=== PATIENT | male | born 1940 | race Caucasian/White ===

== ENCOUNTER 2017-08-14 10:03 | Observation (INO) | payer BC, MEDICARE ==
[2017-08-14 10:27] LABS: #Eosinphils 0.1 thou/uL (0.0-0.7); #Lymphocytes 1.3 thou/uL (1.20-3.40); #Monocytes 0.5 thou/uL (0.11-0.59); #Neutrophils 3.7 thou/uL (1.40-6.50); %Basophils 0.1 % (0.0-1.0); %Eosinophils 1.9 % (0.0-10.0); %Monocytes 8.9 % (0.0-10.0); Hematocrit 42.5 % (42.0-52.0); Mean Platelet Volume 7.4 fL (7.4-10.4); Red Blood Cell (RBC) Count 4.17 mill/uL (4.70-6.10); White Blood Cell (WBC) Count 5.5 thou/uL (4.8-10.8)
[2017-08-14 10:45] LABS: ALT (SGPT) 24 U/L (8-55); AST (SGOT) 22 U/L (5-34); Alkaline Phosphatase 55 U/L (40-150); Anion Gap 8 mmol/L (10-20); BUN (Urea Nitrogen) 22 mg/dL (8.4-25.7); Bilirubin, Total 1.3 mg/dL (0.2-1.2); CK (CPK) 87 U/L (30-200); Calc. Creatinine Clearance 0 mL/min (70-130); Calcium 9.9 mg/dL (7.8-10.44); Carbon Dioxide 31 mmol/L (23-31); Chloride 103 mmol/L (98-107); Estimated GFR-MDRD Greater than 90; Globulin 3.2 g/dL (2.4-3.5); Protein, Total 7.3 g/dL (5.8-8.1)
[2017-08-14 10:50] LABS: Troponin I Less than 0.010 ng/mL (< 0.028)
[2017-08-14 10:54] LABS: Prothrombin Time 13.3 SEC (12.0-14.7)
--- NOTE | 2017-08-14 10:55 | RAD ---
AP PORTABLE VIEW CHEST: HISTORY: Mid sternal pain and weakness for 1 week. FINDINGS: AP view chest was obtained on 08/14/17. AP view chest demonstrates calcification and ectasia of the aorta. There is some fullness in the right hilar region concerning for possible right hilar mass or lymphade nopathy. I do recommend correlation with contrast-enhanced CT of the chest to rule out right hilar a bnormality. IMPRESSION: 1. Possible right hilar mass. 2. Calcification of the aorta. No other acute intrathoracic abnormality is seen. POS: [facility]
--- NOTE | 2017-08-14 11:53 | CT ---
CONTRAST ENHANCED CTA CHEST: HISTORY: Mid sternal pain. Weakness for one week. TECHNIQUE: A contrast enhanced CTA of the chest is performed, and 2D and 3D reconstructed images are performed o n an independent 3D work station. FINDINGS: CTA chest demonstrates coronary artery calcifications. Aortic valvular calcification is also seen. There is a partially calcified granuloma in the superior segment of the left lower lobe. Areas of sc ar or atelectasis are also seen in the posterolateral aspect of the left lower lobe. No evidence of mediastinal or hilar lymphadenopathy is seen. No definite evidence of filling defect seen in the pulmonary arteries, to suggest pulmonary emboli. A tiny pericardial effusion is seen. No evidence of pleural effusion is seen. IMPRESSION: No evidence of pulmonary emboli. POS: [facility]
[2017-08-14] MEDS ORDERED: Enoxaparin Sodium 100 MG/ML SYRINGE ONE (12:38)
[2017-08-14] MEDS ORDERED: ISOVUE-370 76%-LOCM 1 ML ONE (13:55)
[2017-08-14 13:57] LABS: Troponin I Less than 0.010 ng/mL (< 0.028)
--- NOTE | 2017-08-14 14:40 | HP ---
PRIMARY CARE PHYSICIAN: Jennifer Gibson in [place]. The patient also sees a Dr. Hoang [facility] the [place]. CHIEF COMPLAINT: Chest pain. HISTORY OF PRESENT ILLNESS: Mr. Interiano is a pleasant 76-year-old gentleman who has a history of hypertension. He was in his usual state of health until the morning of admission. The patient says that he noticed that whenever he was not doing anything around the house or outside, he felt dizzy. He says that this has been going on for the last 2 days, but got progressively worse. He also says carrie fitzgerald was having these pains in his chest in the center of his chest and he describes it as feeling like he had indigestion and felt bloated. These sensations did not radiate into his arm or into his neck. He did feel somewhat short of breath and he felt like if he could induce himself to vomit, he would feel better, but he could not. He says that these symptoms were worse actually when he was coughing or taking a deep breath and would get better. As a result he came to the emergency room for evaluat ion. In the ER, he had a CT angiogram of the chest which was negative for PE; however, it showed jorge e calcifications in his coronary arteries and he is being brought into the hospital for further evalu ation. It is also noted in reviewing his records, he had an echocardiogram done about 2 years ago. At that time, he had severe aortic stenosis with a calculated valve area of approximately 1.35 cm2. He says that he is being managed by Dr. Castro and his last echo was about a year ago. The patient denies any leg swelling or edema or leg pain. He also denies any palpitations, but he does admit to this lightheaded feeling and dizziness whenever he does anything. REVIEW OF SYSTEMS: CONSTITUTIONAL: There have been no fevers, chills, night sweats, no weight loss. HEENT: No headaches, but he has had dizziness, no visual changes, no sore throat, rhinorrhea, neck p ain, no adenopathy. PULMONARY: There has been no hemoptysis, no cough, no wheezing. CARDIOVASCULAR: As the history of present illness. GASTROINTESTINAL: He has had the constant bloating feeling, but no nausea, no vomiting, no change in bowels. GENITOURINARY: No urinary frequency, hematuria, no hesitancy. NEUROLOGIC: No focal weakness, numbness or seizures. PSYCHIATRIC: No symptoms of anxiety or depression. SKIN AND INTEGUMENT: No skin changes. No rash. PAST MEDICAL HISTORY: Significant for hypertension as well as osteoarthritis. PAST SURGICAL HISTORY: He has had a varicose vein repair, hernia repair. It is listed as an appende ctomy in his old records, but he denies this and says he still has his appendix. He says he has had a tonsillectomy, nasal fracture, but no surgery to repair this. He has also had bilateral shoulder s urgery. ALLERGIES: No known drug allergies. SOCIAL HISTORY: He is . He is a non-smoker, he occasionally drinks. He has 9 siblings, all of which are doing well except for one sister who of cancer. FAMILY HISTORY: Significant for diabetes in his mother and cancer in his sister. CURRENT MEDICATIONS: Hydrochlorothiazide. He says he just takes 1/2 tablet a day, Azulfazin 10 mg a nd aspirin 81 mg a day. PHYSICAL EXAMINATION: GENERAL: He is alert and oriented. He appears to be in no acute distress. Currently, he is chest p ain free. VITAL SIGNS: His blood pressure was 137/87, heart rate 71, respiratory rate 15, temperature is 97.1. HEENT: His pupils are equal, round, and reactive. Extraocular muscles are intact. Sclerae are anic teric. Throat; there is no erythema, no exudates. NECK: No adenopathy, no bruits. LUNGS: Clear. There is no wheezing, no rales. CARDIOVASCULAR: He has a normal S1, S2. No S3 or S4. No clicks or rubs. He does have a slight gra de 2/6 systolic murmur which is radiating to the carotids; however, it was a soft murmur. ABDOMEN: Soft, it is nontender, nondistended. Positive for bowel sounds. There is no rebound, no g uarding. EXTREMITIES: He has got significant varicose veins, but there is no edema. No warmth and on his pul ses he has got palpable dorsalis pedis pulses bilaterally. NEUROLOGICAL: The exam is nonfocal. LABORATORY: His EKG was sinus rhythm, the rate was in the 70s and there were no ST wave changes. Hi s white blood cell count 5.5, hemoglobin 13.8, hematocrit 42.5, platelet count is 208. INR 1.0. Sod ium 138, potassium 4.4, chloride is 103, CO2 is 31, BUN of 22, creatinine 0.8 and glucose was 99. Tr oponin is less than 0.010. ASSESSMENT AND PLAN: 1. This is a 76-year-old gentleman that presents with atypical chest pain as well as some indigestio n symptoms. He has a known history of critical aortic stenosis which it looks like it may have been first detected about 2 years ago. He will be brought in to observation. We will continue to trend h is cardiac enzymes and given the possibility of critical aortic stenosis we will hold off on ordering a stress test at this time and consult his manager fleet, Dr. Castro, with guidance with regards to further workup and recommendations. We will, however, go ahead and order an echocardiogram. 2. Hypertension, this appears to be well controlled and we will continue hydrochlorothiazide and con tinue to monitor his electrolytes. 3. We will place the patient on deep venous thrombosis and gastrointestinal prophylaxis.
[2017-08-14 17:07] LABS: Troponin I Less than 0.010 ng/mL (< 0.028)
[2017-08-14] MEDS ORDERED: Ondansetron HCl/PF 4 MG/2 ML Vial IVP PRN (21:58)
[2017-08-14] MEDS ORDERED: Sodium Chloride 0.9% 1,000 ML IV SCH (21:58)
[2017-08-14] MEDS ORDERED: Ondansetron ODT 4 MG TAB SL PRN (21:58)
[2017-08-14] MEDS ORDERED: Acetaminophen 325 MG TAB PO PRN (22:17)
[2017-08-14] MEDS ORDERED: Carvedilol 3.125 MG TAB PO SCH (22:30)
[2017-08-14] MEDS ORDERED: Famotidine 20 MG TAB PO SCH (22:30)
[2017-08-14 23:49] VITALS: BMI 25.4
[2017-08-15 01:11] LABS: Troponin I Less than 0.010 ng/mL (< 0.028)
[2017-08-15 05:10] LABS: #Eosinphils 0.1 thou/uL (0.0-0.7); #Lymphocytes 1.2 thou/uL (1.20-3.40); #Monocytes 0.3 thou/uL (0.11-0.59); #Neutrophils 2.9 thou/uL (1.40-6.50); %Basophils 0.3 % (0.0-1.0); %Eosinophils 3.3 % (0.0-10.0); %Lymphocytes 26.1 % (21.0-51.0); %Monocytes 6.9 % (0.0-10.0); Hematocrit 41.5 % (42.0-52.0); Mean Platelet Volume 7.3 fL (7.4-10.4); Red Blood Cell (RBC) Count 4.09 mill/uL (4.70-6.10); White Blood Cell (WBC) Count 4.5 thou/uL (4.8-10.8)
[2017-08-15 05:37] LABS: Anion Gap 10 mmol/L (10-20); BUN (Urea Nitrogen) 17 mg/dL (8.4-25.7); Calc. Creatinine Clearance 103 mL/min (70-130); Calcium 8.8 mg/dL (7.8-10.44); Carbon Dioxide 28 mmol/L (23-31); Chloride 104 mmol/L (98-107); Cholesterol 195 mg/dl (< 200 Desired); Estimated GFR-MDRD Greater than 90; LDL Cholesterol, Calculated 113 mg/dL
[2017-08-15 05:42] LABS: Troponin I Less than 0.010 ng/mL (< 0.028)
[2017-08-15] MEDS ORDERED: Famotidine 20 MG TAB PO SCH (09:00)
[2017-08-15] MEDS ORDERED: Enoxaparin Sodium 40 MG/0.4 ML SYRINGE SC SCH (09:00)
[2017-08-15] MEDS ORDERED: Aspirin 325 MG TAB PO SCH (09:00)
[2017-08-15] MEDS ORDERED: Carvedilol 3.125 MG TAB PO SCH (09:00)
--- NOTE | 2017-08-15 11:16 | PDOC.PN ---
- Subjective Encounter Start Date: 08/15/17 Encounter Start Time: 11:14 Mr. Interiano was seen today in follow-up of feeling dizzy, and bloated. He says he has not had any dizziness this morning, but has felt bloated. He admits he has not been up much to tell about the dizziness. - Objective Resuscitation Status: Resuscitation Status FULL:Full Resuscitation MAR Reviewed: Yes Vital Signs & Weight: Vital Signs (12 hours) Temp Pulse Resp BP BP Pulse Ox 08/15/17 08:00 98.3 F 79 18 131/73 92 L 08/15/17 03:39 97.6 F 69 18 129/68 92 L 08/15/17 00:34 94 L 08/15/17 00:00 97.7 F 67 20 124/76 92 L Weight Admit Weight 182 lb 3.2 oz Weight 182 lb 3.2 oz I&O: 08/14/17 08/15/17 08/16/17 06:59 06:59 06:59 Intake Total 462 Output Total 550 Balance 462 -550 Result Diagrams: 08/15/17 04:42 08/15/17 04:42 Phys Exam - Physical Examination HEENT: PERRLA Respiratory: no wheezing, no rales, no rhonchi Cardiovascular: RRR, no significant murmur Gastrointestinal: soft, non-tender, positive bowel sounds Musculoskeletal: no edema Dx/Plan (1) Chest pain Code(s): R07.9 - CHEST PAIN, UNSPECIFIED Status: Acute (2) Hypertension Code(s): I10 - ESSENTIAL (PRIMARY) HYPERTENSION Status: Acute - Plan * Chest pain and dizziness- await Echo results to evaluate * Await Cardiology evaluation * HTN - blood pressure is stable.
[2017-08-15 16:34] VITALS: BP 120/74; TEMP 97.8
--- NOTE | 2017-08-16 06:03 | CON ---
DATE OF CONSULTATION: 08/15/2017 HISTORY OF PRESENT ILLNESS: The patient is a 76-year-old gentleman who presented for evaluation of dizziness and chest discomfort. The patient states approximately 3 weeks ago, he started having midsternal chest discomfort. This has been a persistent pain. He states that it is more severe when he lies on his left side. The discomfort has continued throughout his hospitalization. The patient also reported that he has been doing a lot of physical activity and at times felt dizzy. The patient denies having any chest discomfort with exertion. He denies having any PND or orthopnea. PAST MEDICAL HISTORY: Hypertension. PAST SURGICAL HISTORY: Varicose veins, and hernia surgery. SOCIAL HISTORY: Nonsmoker. FAMILY HISTORY: No strong family history of coronary artery disease. MEDICATIONS ON ADMISSION: Hydrochlorothiazide half a tablet day, Azulfidine 10 mg daily, baby aspirin tablet daily. REVIEW OF SYSTEMS Ten-point system otherwise unremarkable. No history of easy bruising or bleeding, bright red blood per rectum. PHYSICAL EXAMINATION: GENERAL: This is a thin, well-developed gentleman in no acute distress with a blood pressure of 120/74. NECK: Showed no jugular venous distention. LUNGS: Clear to auscultation. HEART: Regular rate and rhythm, normal S1, S2 with a 2/6 systolic murmur. ABDOMEN: Nondistended. EXTREMITIES: Showed no edema. SKIN: Warm and dry. NEUROLOGIC: Nonfocal. VASCULAR: Radial pulses are 2+. LABORATORY RESULTS: Revealed him to have a sodium 130, potassium 4.4, chloride 103, bicarbonate 31, BUN 22, creatinine 0.81, glucose is 99, troponin less than 0.01. White blood cell count 4.5, hemoglobin 13.0, hematocrit 41.5, and platelets 198. INR was 1.0. EKG revealed normal sinus rhythm, normal ECG. Echocardiogram revealed normal left ventricular ejection fraction 60-65%, moderate aortic stenosis with an estimated area of 1.34 cm2. IMPRESSION: 1. Atypical chest pain. 2. Mild to moderate aortic stenosis. 3. Hypertension. This gentleman presents with atypical chest pain that has been present for several weeks. His EKG is unremarkable. From a cardiac standpoint, he will be treated him with nonsteroidal medication. We will need followup stress testing. We will follow this patient with you through this hospitalization. KEILA
--- NOTE | 2017-08-16 12:36 | DIS ---
DATE OF ADMISSION: 08/14/2017 DATE OF DISCHARGE: 08/15/2017 PRIMARY CARE PHYSICIAN: Jennifer Gibson in [place]. The patient also sees Dr. Hoang at the [place]. DISCHARGE DISPOSITION: Home. PRIMARY DISCHARGE DIAGNOSES: 1. Chest pain, it is atypical. 2. Moderate aortic stenosis. 3. Hypertension. 4. Osteoarthritis. DISCHARGE MEDICATIONS: There will be no change in medications and include hydrochlorothiazide 12.5 m g daily and alfuzosin 10 mg daily. PROCEDURES DONE DURING THE ADMISSION: The patient had a CT angiogram of the chest showing no evidenc e of pulmonary embolism. The patient also had an echocardiogram showing an ejection fraction estimat ed at 60%-65%. There is moderate mitral regurgitation and moderate aortic stenosis and valve area wa s once again estimated at 1.34 cm2. CODE STATUS: FULL CODE. ALLERGIES: No known drug allergies. HOSPITAL COURSE: Mr. Interiano is a pleasant 76-year-old gentleman who presented to the emergency r oom complaining of chest pain and dizziness primarily with exertion. He was placed in observation an d ruled out. An echocardiogram was obtained. It did not show any significant change in the aortic v alve area from a previous echo done about 2 years prior. He was seen by Cardiology and it was felt t hat his other symptoms including the chest pain was likely noncardiac and possibly musculoskeletal in origin. The dizziness likely could be due to mild dehydration as the patient had been doing quite a bit of work outside [place] prior to admission. He was instructed to stay hydrated and to have an outpatient followup with his community service director in a month or so and then also with his primary care yadira campos in few weeks.
== END 2017-08-15 19:50 | disposition home or self-care (01) ==
LOC: ERS 10:03 → INTOOBSV 12:06 → ERHOLD 12:06 → 2NO 21:45
PROVIDERS: ADMIT Internal Medicine; ATTEND Internal Medicine
DX: R07.89 Other chest pain (principal); I35.0 Nonrheumatic aortic (valve) stenosis; I10 Essential (primary) hypertension; M19.90 Unspecified osteoarthritis, unspecified site; Z79.899 Other long term (current) drug therapy; Z98.890 Other specified postprocedural states
CPT/HCPCS: 36415; 71010; 71275; 80048; 80053; 80061; 82550; 82553; 83690; 83880; 84484; 85025; 85610; 85730; 93005; 93306; 94760; 96360; 96361; 96372; A4216; G0378; J1650

== ENCOUNTER 2018-04-23 12:19 | Outpatient (CLI) | payer BC, MEDICARE | END 2018-04-23 12:20 | disposition home or self-care (01) | LOC: ULT 12:19 | PROVIDERS: ATTEND Family Medicine | DX: R06.02 Shortness of breath (principal); I35.0 Nonrheumatic aortic (valve) stenosis; I08.3 Combined rheumatic disorders of mitral, aortic and tricuspid valves | CPT/HCPCS: 93306 ==

== ENCOUNTER 2018-06-01 08:09 | Outpatient (CLI) | payer BC, MEDICARE ==
[2018-06-01 09:44] LABS: #Eosinphils 0.2 thou/uL (0.0-0.7); #Lymphocytes 1.1 thou/uL (1.20-3.40); #Monocytes 0.4 thou/uL (0.11-0.59); #Neutrophils 3.5 thou/uL (1.40-6.50); %Basophils 0.3 % (0.0-1.0); %Eosinophils 3.2 % (0.0-10.0); %Lymphocytes 21.3 % (21.0-51.0); %Monocytes 8.4 % (0.0-10.0); %Neutrophils 66.9 % (42.0-75.0); Hemoglobin 13.6 g/dL (14.0-18.0); Mean Corpuscular HGB CONC 32.4 g/dL (32.0-36.0); Mean Corpuscular Hemoglobin 32.7 pg (27.0-31.0); Mean Platelet Volume 7.9 fL (7.4-10.4); Platelet Count 227 thou/uL (130-400); RBC Distribution Width 11.6 % (11.5-14.5); Red Blood Cell (RBC) Count 4.17 mill/uL (4.70-6.10); White Blood Cell (WBC) Count 5.2 thou/uL (4.8-10.8)
[2018-06-01 09:53] LABS: Prothrombin Time 13.3 SEC (12.0-14.7)
[2018-06-01 09:54] LABS: PTT 29.2 SEC (22.9-36.1)
[2018-06-01 10:12] LABS: ALT (SGPT) 12 U/L (8-55); AST (SGOT) 16 U/L (5-34); Albumin 4.1 g/dL (3.4-4.8); Alkaline Phosphatase 41 U/L (40-150); Anion Gap 12 mmol/L (10-20); BUN (Urea Nitrogen) 18 mg/dL (8.4-25.7); Bilirubin, Total 1.9 mg/dL (0.2-1.2); Calc. Creatinine Clearance 0 mL/min (70-130); Calcium 9.7 mg/dL (7.8-10.44); Carbon Dioxide 26 mmol/L (23-31); Cardiac Risk 2.8 (Less than 4.5); Chloride 106 mmol/L (98-107); Cholesterol 208 mg/dl (< 200 Desired); Estimated GFR-MDRD Greater than 90; Glucose 91 mg/dL (83-110); HDL Cholesterol 73 mg/dL (>60 Neg Risk); LDL Cholesterol, Calculated 126 mg/dL; Potassium 4.2 mmol/L (3.5-5.1); Protein, Total 7.1 g/dL (5.8-8.1); Sodium 140 mmol/L (136-145); Triglycerides 46 mg/dL (Less than 150)
== END 2018-06-01 08:10 | disposition home or self-care (01) ==
LOC: LABBT 08:09
PROVIDERS: ATTEND Internal Medicine Cardiovascular Disease
DX: Z01.812 Encounter for preprocedural laboratory examination (principal); I35.0 Nonrheumatic aortic (valve) stenosis
CPT/HCPCS: 80053; 80061; 85025; 85610; 85730

== ENCOUNTER 2018-06-04 05:54 | Day surgery (SDC) | payer BC, MEDICARE ==
[2018-06-01 08:31] VITALS: BMI 26.0
[2018-06-04] MEDS ORDERED: Lidocaine 1% (PF) 30 ML VIAL ONE (06:32)
[2018-06-04] MEDS ORDERED: Midazolam HCl 2 mg/2 ml Vial ONE (07:09)
[2018-06-04] MEDS ORDERED: Heparin 10,000 UNITS/1 ML VIAL ONE (07:09)
[2018-06-04] MEDS ORDERED: Fentanyl 100 MCG/2 ML VIAL ONE (07:09)
[2018-06-04] MEDS ORDERED: Protamine Sulfate 50 MG/5 ML VIAL ONE (07:39)
[2018-06-04] MEDS ORDERED: Iopamidol 370 76% 100 ML VIAL ONE (11:04)
[2018-06-04] MEDS ORDERED: Iopamidol 370 76% 50 ML VIAL FS ONE (11:04)
== END 2018-06-04 16:05 | disposition home or self-care (01) ==
LOC: CCL 05:54
PROVIDERS: ATTEND Internal Medicine Cardiovascular Disease
PROC: 4A023N8 Measurement of Cardiac Sampling and Pressure, Bilateral, Percutaneous Approach (ICD-10-PCS; principal; 2018-06-04)
PROC: B2111ZZ Fluoroscopy of Multiple Coronary Arteries using Low Osmolar Contrast (ICD-10-PCS; principal; 2018-06-04)
DX: I35.0 Nonrheumatic aortic (valve) stenosis (principal); I25.10 Atherosclerotic heart disease of native coronary artery without angina pectoris; I10 Essential (primary) hypertension; E78.00 Pure hypercholesterolemia, unspecified; Z79.82 Long term (current) use of aspirin; Z79.899 Other long term (current) drug therapy
CPT/HCPCS: 85347; 93460; 93561; 99152; 99153; C1769; J1644; J2001; J2250; J2720; J3010

== ENCOUNTER 2018-06-14 09:11 | Outpatient (CLI) | payer BC, MEDICARE ==
--- NOTE | 2018-06-14 12:34 | CT ---
CT THORAX NONCONTRAST: DATE: 06/14/2018. HISTORY: A 77-year-old male with I35.0, non-rheumatic aortic valve stenosis. COMPARISON: Contrast-enhanced CT pulmonary angiogram of 08/14/2017. FINDINGS: The previous CT showed an approximately 1.4 x 1.2 x 1.7 cm pulmonary nodule in the superior segment o f the left lower lobe. It contains a tiny calcification within it. This nodule currently measures a pproximately 1.2 x 1.1 x 1.1 cm. There are plate-like densities in the left lower lobe consistent wi th subsegmental atelectasis. These have improved since the previous CT. Milder such densities are p resent in the contralateral right lower lobe. No new consolidation, pulmonary edema, pleural effusio n, or pneumothorax. Trachea and major bronchi are patent and clear. Atherosclerotic calcification o f coronary arteries. No pericardial effusion. Calcifications at the aortic root, including at the a ortic valve. Tortuosity of thoracic aorta without aneurysm. No mediastinal lymphadenopathy. IMPRESSION: 1. Calcifications of aortic valve and aortic root. 2. Coronary arthrosclerotic disease. 3. Benign pulmonary nodule in the superior segment of the left lower lobe. 4. No acute findings. RICCI Cutler POS: [facility]
== END 2018-06-14 09:12 | disposition home or self-care (01) ==
LOC: SCSCT 09:11
PROVIDERS: ATTEND Thoracic Surgery (Cardiothoracic Vascular Surgery)
DX: I35.0 Nonrheumatic aortic (valve) stenosis (principal); I25.10 Atherosclerotic heart disease of native coronary artery without angina pectoris; R91.1 Solitary pulmonary nodule
CPT/HCPCS: 71250

== ENCOUNTER 2018-06-20 05:43 | Inpatient (IN) | payer BC, MEDICARE ==
[2018-06-20] MEDS ORDERED: Albumin 5% 500 ML ONE (06:05)
[2018-06-20] MEDS ORDERED: CEFAZOLIN/Water 2 GM/20 ML SYRINGE ONE (06:10)
[2018-06-20] MEDS ORDERED: Vancomycin HCl 1.5 GM in Sodium Chloride 0.9% 250 ML 300 ML IVPB SCH (06:15)
[2018-06-20] MEDS ORDERED: Fentanyl 100 MCG/2 ML VIAL ONE (06:24)
[2018-06-20] MEDS ORDERED: Midazolam HCl 2 mg/2 ml Vial ONE (06:24)
[2018-06-20] MEDS ORDERED: Midazolam HCl 5 mg/5 ml Vial ONE (06:24)
[2018-06-20] MEDS ORDERED: Vecuronium 10 MG VIAL ONE ×2 (06:25→15:11)
[2018-06-20] MEDS ORDERED: Dexmedetomidine 200 MCG/2 ML VIAL ONE (06:25)
[2018-06-20] MEDS ORDERED: Iothalamate Meglumine 60% 50 ML VIAL FS ONE (06:42)
[2018-06-20 06:44] LABS: #Eosinphils 0.2 thou/uL (0.0-0.7); #Monocytes 0.5 thou/uL (0.11-0.59); #Neutrophils 4.4 thou/uL (1.40-6.50); %Basophils 0.2 % (0.0-1.0); %Eosinophils 2.5 % (0.0-10.0); %Monocytes 8.7 % (0.0-10.0); %Neutrophils 71.7 % (42.0-75.0); Hemoglobin 13.3 g/dL (14.0-18.0); Mean Corpuscular HGB CONC 32.6 g/dL (32.0-36.0); Mean Corpuscular Hemoglobin 32.8 pg (27.0-31.0); Mean Platelet Volume 7.8 fL (7.4-10.4); Platelet Count 203 thou/uL (130-400); RBC Distribution Width 11.4 % (11.5-14.5); Red Blood Cell (RBC) Count 4.04 mill/uL (4.70-6.10); White Blood Cell (WBC) Count 6.1 thou/uL (4.8-10.8)
[2018-06-20 06:48] LABS: Prothrombin Time 13.7 SEC (12.0-14.7)
[2018-06-20 06:49] LABS: PTT 30.3 SEC (22.9-36.1)
[2018-06-20 07:00] LABS: Anion Gap 10 mmol/L (10-20); BUN (Urea Nitrogen) 19 mg/dL (8.4-25.7); Calc. Creatinine Clearance 96 mL/min (70-130); Calcium 9.1 mg/dL (7.8-10.44); Carbon Dioxide 25 mmol/L (23-31); Chloride 109 mmol/L (98-107); Estimated GFR-MDRD Greater than 90; Glucose 91 mg/dL (83-110); Potassium 4.2 mmol/L (3.5-5.1); Sodium 140 mmol/L (136-145)
[2018-06-20] MEDS ORDERED: Heparin 10,000 UNITS/1 ML VIAL 30,000 UNITS in Sodium Chloride 0.9% 1,000 ML FS SCH (07:00)
[2018-06-20] MEDS ORDERED: Promethazine HCl 25 MG/ML VIAL IM PRN (11:51)
[2018-06-20] MEDS ORDERED: Bisacodyl 10 MG SUPP PR PRN (11:51)
[2018-06-20] MEDS ORDERED: Norepinephrine 8 MG/0.9% NS 250 ML IVPB PRN (11:51)
[2018-06-20] MEDS ORDERED: Potassium Chloride 20 MEQ/100 ML PREMIX BAG IVPB PRN (11:51)
[2018-06-20] MEDS ORDERED: Acetaminophen 325 MG TAB PO PRN (11:51)
[2018-06-20] MEDS ORDERED: Hetastarch 6% 500 ML 500 ML IVPB PRN (11:51)
[2018-06-20] MEDS ORDERED: hydrALAZINE 20 MG/ML VIAL SLOW IVP PRN (11:51)
[2018-06-20] MEDS ORDERED: Bisacodyl 5 MG TAB PO PRN (11:51)
[2018-06-20] MEDS ORDERED: Nitroglycerin 50 MG/250 ML BOT 250 ML IVPB PRN (11:51)
[2018-06-20] MEDS ORDERED: Guaifenesin DM 100-10/5 ML UDCUP PO PRN (11:51)
[2018-06-20] MEDS ORDERED: Fentanyl 100 MCG/2 ML VIAL SLOW IVP PRN (11:51)
[2018-06-20] MEDS ORDERED: Mag-Al 1200 mg/1200 mg/30 ML UDCUP PO PRN (11:51)
[2018-06-20] MEDS ORDERED: Phenylephrine 10 MG/NS 250 ML 250 ML IVPB PRN (11:51)
[2018-06-20] MEDS ORDERED: Morphine 2 MG/ML SYRINGE SLOW IVP PRN (11:51)
--- NOTE | 2018-06-20 11:53 | OP ---
DATE OF PROCEDURE: 06/20/2018 PREOPERATIVE DIAGNOSES: Aortic stenosis. POSTOPERATIVE DIAGNOSES: Aortic stenosis. PROCEDURE: Aortic valve replacement - this was initially begun as a minimally invasive and converted to open aortic valve replacement with a #23 Intuity bioprosthetic valve. SURGEON: Dr. Noah Miller and Dr. Jarad Gutierrez. ANESTHESIA: General endotracheal, Dr. Nirmal Zheng. PUMP TIME: 95 minutes. CROSS-CLAMP TIME: 48 minutes. LOW CORE TEMP: 32-degree Celsius. SCOUT: Kwaku Seaman. DRAINS: 24-Kyrgyz chest tubes x2. DRIPS: None. TRANSFUSIONS: None. PROCEDURE IN DETAIL: After consent was obtained, the patient was brought to operating room and placed in supine position on the operating room table. Appropriate anesthetic monitor was placed and general endotracheal anesthesia induced. Chest, abdomen and thighs were prepped and draped in usual sterile fashion. A cutdown was performed on the left common femoral vein and artery. 4 -0 Prolene pursestring sutures were placed. Left anterior thoracotomy was made in the second interspace. The third rib was divided. Mammary artery and vein were divided. The pleural space was entered. Retractors were then placed exposing the pericardium. Pericardium was incised and the incision was carried up superiorly toward the aorta and inferiorly down toward the inferior vena cava. Pericardial stay sutures were placed. The patient was systemically heparinized. A 24-Kyrgyz drain was placed in the right pleural cavity for CO2 insufflation and CO2 insufflation was begun. A 20-Kyrgyz arterial and a 24- Kyrgyz venous cannula were then positioned, utilizing fluoroscopic guidance. The patient was placed on cardiopulmonary bypass. A left ventricular sump drain was placed to the right superior pulmonary vein. Multiple attempts at exposing the aorta to allow for crossclamping were performed. We never were able to gain what I felt to be adequate exposure due to the right heart being full. We attempted to reposition the venous cannula, but could never get it positioned well enough to completely decompress the right heart. I did not feel it was safe to continue and we elected to convert to open operation. The sternum was opened. Sternum was spread. Once the sternum was spread the aorta was then exposed and aortic cross-clamp was applied and antegrade sanguinous cardioplegic arrest obtained. One liter of antegrade cold cardioplegia was given. A transverse aortotomy was performed. The valve was then inspected. It was a 3 leaflet valve that was heavily calcified. Leaflets were debrided and annulus decalcified. Valve measured as #23, Intuity valve was brought in the operative field and washed. Four sutures were placed, 2 in the noncoronary cusp and one in each of the left and right coronary cusp naders. These sutures were passed through the sewing ring of the valve and the valve was seated and secured with Rumel tourniquets. The balloon was inflated for 10 seconds at 4-1/ 2 mmHg. Balloon was deflated and the deployment device removed. Sutures were secured with core knots. The valve was seated nicely with no exposed cuff. The aortotomy was closed in a running fashion with 4-0 Prolene suture. De- airing maneuvers were then performed. After adequate deairing, the cross clamp was removed with the patient in Trendelenburg position. The patient was warmed. A left trigger sump drain was removed and its pursestring sutures secured. The antegrade cardioplegic catheter was removed and its pursestring sutures secured. After resumption of sinus rhythm, good hemodynamics, and temperature greater than 36.5, bypass was discontinued. Decannulation was performed and pursestring sutures secured in the groin. Wound was irrigated, closed in layers. Protamine was administered. Hemostasis was ensured within the mediastinum. A second drain was placed within the mediastinum itself. Ventricular pacing wires had been placed and brought to the skin and secured to skin with silk suture. A significant amount of time was spent ensuring hemostasis along the sternum. Vancomycin paste was placed on the sternal edges. After adequate hemostasis had been obtained, sternum was closed with #7 wire. Sternum was treated with platelet-rich plasma and wires twisted. Wounds were irrigated, treated with platelet-poor plasma, and closed in multiple layers. Needle, sponge, and instrument counts were all reported correct at the end of the procedure, the patient was transferred to the Intensive Care Unit in stable condition. KEILA
[2018-06-20] MEDS ORDERED: Magnesium 2 GM/NS 0.9% 100 ML 2 GM in Premix Bag 1 BAG IVPB SCH (12:15)
[2018-06-20] MEDS ORDERED: Dextrose 50% Abboject 50 ML SYRINGE SLOW IVP PRN (12:17)
[2018-06-20] MEDS ORDERED: Dextrose 5% in Water 1,000 ML IV PRN (12:17)
--- NOTE | 2018-06-20 12:25 | RAD ---
PORTABLE CHEST: History: Post op open heart surgery. Comparison: 04-16-18 FINDINGS: Heart size is enlarged. There are no post op sternotomy changes seen. Midline and right sided chest t ubes are present. A left sided jugular line is present. The catheter tip is difficult to visualized b ut appears to be within the brachiocephalic vein. There are atelectatic changes in the lung bases. IMPRESSION: Post-operative changes. POS: [facility]
[2018-06-20 12:41] LABS: INR-International Normal Ratio 1.5; Prothrombin Time 17.8 SEC (12.0-14.7)
[2018-06-20 12:52] LABS: #Eosinphils 0.1 thou/uL (0.0-0.7); #Neutrophils 14.7 thou/uL (1.40-6.50); %Basophils 0.3 % (0.0-1.0); %Eosinophils 0.7 % (0.0-10.0); %Lymphocytes 5.8 % (21.0-51.0); %Monocytes 5.7 % (0.0-10.0); %Neutrophils 87.8 % (42.0-75.0); Hemoglobin 12.5 g/dL (14.0-18.0); Mean Corpuscular HGB CONC 32.5 g/dL (32.0-36.0); Mean Corpuscular Hemoglobin 32.7 pg (27.0-31.0); Mean Platelet Volume 8.1 fL (7.4-10.4); Platelet Count 133 thou/uL (130-400); RBC Distribution Width 11.5 % (11.5-14.5); Red Blood Cell (RBC) Count 3.83 mill/uL (4.70-6.10); White Blood Cell (WBC) Count 16.6 thou/uL (4.8-10.8)
[2018-06-20 12:58] LABS: Anion Gap 8 mmol/L (10-20); BUN (Urea Nitrogen) 16 mg/dL (8.4-25.7); Calc. Creatinine Clearance 116 mL/min (70-130); Calcium 7.7 mg/dL (7.8-10.44); Carbon Dioxide 22 mmol/L (23-31); Chloride 113 mmol/L (98-107); Estimated GFR-MDRD Greater than 90; Glucose 152 mg/dL (83-110); Potassium 4.2 mmol/L (3.5-5.1); Sodium 139 mmol/L (136-145)
[2018-06-20] MEDS: D5 1/2 NS w/20 mEq KCL 1,000 ML IV SCH (13:05)
[2018-06-20] MEDS: CEFAZOLIN/Water 2 GM/20 ML SYRINGE SLOW IVP SCH ×2 (14:31→22:04)
[2018-06-20] MEDS ORDERED: Heparin 5,000 UNITS/ML VIAL ONE (15:11)
[2018-06-20] MEDS ORDERED: Sodium Bicarb 50 MEQ/50 ML VIAL ONE (15:11)
[2018-06-20] MEDS ORDERED: Mannitol 12.5 GM/50 ML ONE (15:11)
[2018-06-20] MEDS ORDERED: Lidocaine 2% PF 100 mg/5 ml Syringe ONE (15:11)
[2018-06-20] MEDS ORDERED: Calcium Chloride 1 GM/10 ML Abboject SYRINGE ONE (15:11)
[2018-06-20] MEDS ORDERED: Ketorolac Tromethamine 30 MG/ML VIAL ONE (15:11)
[2018-06-20] MEDS ORDERED: Potassium Chloride 60 MEQ/30 ML VIAL ONE (15:11)
[2018-06-20] MEDS ORDERED: Nitroglycerin 50 MG/250 ML BOT ONE (15:11)
[2018-06-20] MEDS ORDERED: ePHEDrine/0.9% NaCl/PF SYRINGE 50 mg/10 ml ONE (15:11)
[2018-06-20] MEDS ORDERED: Thrombin 5000 UNITS/5 ML VIAL ONE (15:11)
[2018-06-20] MEDS ORDERED: Aminocaproic Acid 5 GM/20 ML VIAL ONE (15:11)
[2018-06-20] MEDS ORDERED: Protamine Sulfate 250 MG/25 ML VIAL ONE (15:11)
[2018-06-20] MEDS ORDERED: Heparin 30,000 units/30 ml VIAL ONE (15:11)
[2018-06-20] MEDS ORDERED: Magnesium 5 GM/10 ML VIAL ONE (15:11)
[2018-06-20] MEDS ORDERED: HEXTEND 6% LR 500ML 500 ML IVPB PRN (16:15)
[2018-06-20] MEDS: Ondansetron HCl/PF 4 MG/2 ML Vial IVP PRN (17:02)
[2018-06-20] MEDS: HYDROcodone/Acetaminophen 5/325 mg Tablet PO PRN (17:03)
[2018-06-20] MEDS: Insulin Regular 300 UNITS/3 ML VIAL SC PRN ×2 (17:20→20:53)
[2018-06-20 17:26] LABS: Hemoglobin 10.6 g/dL (14.0-18.0)
[2018-06-20 17:41] LABS: Potassium 4.2 mmol/L (3.5-5.1)
--- NOTE | 2018-06-20 18:32 | CON ---
DATE OF CONSULTATION: 06/20/2018 REASON FOR CONSULTATION: Recent aortic valve replacement. PRIMARY PROPERTY MASTER: Dallas Castro MD HISTORY OF PRESENT ILLNESS: Mr. Interiano is a pleasant 77-year-old gentleman who recently underwen t a minimally invasive AVR. He currently has no complaints. He is extubated. His blood pressure is in the 90s. He is receiving . PAST MEDICAL HISTORY: Aortic stenosis, status post AVR; hypertension; varicose vein; hernia surgery. SOCIAL HISTORY: No current tobacco or alcohol use. CURRENT MEDICATIONS: Hydrochlorothiazide, aspirin. REVIEW OF SYSTEMS: Ten-point review of systems is reviewed as above, otherwise negative. PHYSICAL EXAMINATION: GENERAL: Patient is a pleasant male who is in no acute distress. The patient appears his stated age . VITAL SIGNS: Blood pressure 108/49, pulse 70, temperature afebrile. NEUROLOGIC: The patient is alert and oriented times 3 with no focal neurologic deficits. HEENT: Sclerae without icterus. Mouth has moist mucous membranes with normal pallor. NECK: No JVD. Carotid upstroke brisk. No bruits bilaterally. LUNGS: Clear to auscultation with unlabored respirations. BACK: No scoliosis or kyphosis. CARDIAC: Regular rate and rhythm with normal S1 and S2. No S3 or S4 noted. No significant rubs, murmurs, thrills, or gallops noted throughout the precordium. PMI is not displaced. There is no parasternal heave. ABDOMEN: Soft, nontender, nondistended. No peritoneal signs present. No hepatosplenomegaly. No abnormal striae. EXTREMITIES: 2+ femoral and 2+ dorsalis pedis pulses. No cyanosis, clubbing, or edema. SKIN: No gross abnormalities. PERTINENT LABORATORY DATA: Hemoglobin 10.6, creatinine 0.64. IMPRESSION: Status post aortic valve replacement. RECOMMENDATIONS: Mr. Interiano is currently doing well. Avoid beta birdie therapy given a blood p ressure of 95 systolic. Chest tube is still in place. Add statin therapy. Further recommendations per Dr. Dallas Castro in a.m.
[2018-06-20] MEDS: Fentanyl 100 MCG/2 ML VIAL SLOW IVP PRN (20:47)
[2018-06-20] MEDS: Famotidine/PF 20 mg/2ml Vial SLOW IVP SCH (20:49)
[2018-06-20] MEDS ORDERED: Prevnar 13-Val Conj/PF 0.5 ML SYRINGE IM ONE (21:00)
[2018-06-20] MEDS: Vancomycin HCl 1 GM in Premix Bag 1 BAG IVPB SCH (23:53)
[2018-06-21] MEDS: Insulin Regular 300 UNITS/3 ML VIAL SC PRN ×2 (00:22→04:42)
[2018-06-21] MEDS: Fentanyl 100 MCG/2 ML VIAL SLOW IVP PRN ×2 (00:38→04:21)
[2018-06-21] MEDS: HYDROcodone/Acetaminophen 5/325 mg Tablet PO PRN ×4 (01:38→16:58)
[2018-06-21] MEDS: Ondansetron HCl/PF 4 MG/2 ML Vial IVP PRN ×2 (01:38→18:05)
[2018-06-21 04:55] LABS: #Lymphocytes 0.8 thou/uL (1.20-3.40); #Neutrophils 9.7 thou/uL (1.40-6.50); %Eosinophils 0.1 % (0.0-10.0); %Lymphocytes 7.2 % (21.0-51.0); %Monocytes 8.9 % (0.0-10.0); %Neutrophils 83.8 % (42.0-75.0); Hemoglobin 9.6 g/dL (14.0-18.0); Mean Corpuscular HGB CONC 32.2 g/dL (32.0-36.0); Mean Corpuscular Hemoglobin 32.9 pg (27.0-31.0); Mean Platelet Volume 8.5 fL (7.4-10.4); Platelet Count 147 thou/uL (130-400); RBC Distribution Width 11.6 % (11.5-14.5); White Blood Cell (WBC) Count 11.5 thou/uL (4.8-10.8)
[2018-06-21 05:17] LABS: Anion Gap 10 mmol/L (10-20); BUN (Urea Nitrogen) 25 mg/dL (8.4-25.7); Calc. Creatinine Clearance 82 mL/min (70-130); Calcium 7.3 mg/dL (7.8-10.44); Carbon Dioxide 23 mmol/L (23-31); Chloride 109 mmol/L (98-107); Estimated GFR-MDRD 79; Glucose 140 mg/dL (83-110); Potassium 4.5 mmol/L (3.5-5.1); Sodium 137 mmol/L (136-145)
[2018-06-21] MEDS: CEFAZOLIN/Water 2 GM/20 ML SYRINGE SLOW IVP SCH (06:14)
[2018-06-21] MEDS ORDERED: Ketorolac Tromethamine 30 MG/ML VIAL ONE (06:27)
[2018-06-21] MEDS ORDERED: Ketorolac Tromethamine 30 MG/ML VIAL IVP SCH (06:30)
--- NOTE | 2018-06-21 08:09 | RAD ---
PORTABLE CHEST: HISTORY: Postop open heart surgery. COMPARISON: Prior day's exam. FINDINGS: Right side chest tubes remain in place. The chest tube located near the right costophrenic angle eliecer ears to have been retracted slightly as compared to the prior exam. Persistent bibasilar lung change s are seen. Heart size is enlarged. IMPRESSION: Relatively stable examination. Slight change in position of the right lateral chest tube. POS: [facility]
[2018-06-21] MEDS: Aspirin 325 MG TAB PO SCH (08:13)
[2018-06-21] MEDS ORDERED: Magnesium 2 GM/NS 0.9% 100 ML 2 GM in Premix Bag 1 BAG IVPB SCH (09:00)
[2018-06-21] MEDS: Magnesium 2 GM/50 ML 2 GM in Premix Bag 1 BAG IVPB SCH (10:08)
[2018-06-21] MEDS ORDERED: Amiodarone HCl 150 MG, Admixture Fee 1 EACH in Dextrose 5% in Water 100 ML IVPB SCH (10:30)
[2018-06-21] MEDS: Famotidine/PF 20 mg/2ml Vial SLOW IVP SCH ×2 (10:44→21:49)
[2018-06-21] MEDS: Amiodarone HCl 450 MG, Admixture Fee 1 EACH in Dextrose 5% in Water 250 ML IVPB SCH (10:55)
[2018-06-21] MEDS: Vancomycin HCl 1 GM in Premix Bag 1 BAG IVPB SCH (10:58)
[2018-06-21] MEDS ORDERED: Albumin 25% 0 ML ONE (11:52)
[2018-06-21] MEDS: Ketorolac Tromethamine 30 MG/ML VIAL IVP SCH ×2 (12:18→18:05)
[2018-06-21] MEDS: D5 1/2 NS w/20 mEq KCL 1,000 ML IV SCH (14:07)
[2018-06-21] MEDS: Atorvastatin Calcium 40 MG TAB PO SCH (21:49)
[2018-06-22] MEDS: Ketorolac Tromethamine 30 MG/ML VIAL IVP SCH ×5 (00:22→17:45)
[2018-06-22] MEDS ORDERED: Furosemide 40 MG/4 ML VIAL ONE (06:37)
[2018-06-22] MEDS: Famotidine/PF 20 mg/2ml Vial SLOW IVP SCH (08:52)
[2018-06-22] MEDS: Aspirin 325 MG TAB PO SCH (08:52)
[2018-06-22] MEDS: Magnesium 2 GM/50 ML 2 GM in Premix Bag 1 BAG IVPB SCH (08:52)
[2018-06-22] MEDS: HYDROcodone/Acetaminophen 5/325 mg Tablet PO PRN ×2 (09:19→21:43)
--- NOTE | 2018-06-22 11:42 | RAD ---
FRONTAL VIEW CHEST: INDICATION: Status post open heart surgery. FINDINGS: Supportive lines and tubes are similar. There is a prominent degree of pleural-based as well as pare nchymal density of the mid to lower chest bilaterally. Cardiomediastinal silhouette and pulmonary va sculature remain enlarged with progressive vascular congestion. Otherwise, no significant interval c hange. IMPRESSION: 1. Progressive opacities indicating increasing volume of pleural fluid with adjacent atelectasis and/or pneumonia. 2. Progressive edema. POS: [facility]
[2018-06-22] MEDS: Amiodarone HCl 450 MG, Admixture Fee 1 EACH in Dextrose 5% in Water 250 ML IVPB SCH (12:25)
[2018-06-22 12:54] LABS: Anion Gap 10 mmol/L (10-20); BUN (Urea Nitrogen) 36 mg/dL (8.4-25.7); Calc. Creatinine Clearance 43 mL/min (70-130); Calcium 7.3 mg/dL (7.8-10.44); Carbon Dioxide 21 mmol/L (23-31); Chloride 98 mmol/L (98-107); Estimated GFR-MDRD 37; Glucose 129 mg/dL (83-110); Sodium 125 mmol/L (136-145)
[2018-06-22 13:19] VITALS: BMI 27.3
[2018-06-22] MEDS: D5 1/2 NS w/20 mEq KCL 1,000 ML IV SCH (13:28)
[2018-06-22 15:31] LABS: #Lymphocytes 0.6 thou/uL (1.20-3.40); #Monocytes 0.5 thou/uL (0.11-0.59); #Neutrophils 6.8 thou/uL (1.40-6.50); %Basophils 0.2 % (0.0-1.0); %Eosinophils 0.4 % (0.0-10.0); %Lymphocytes 7.8 % (21.0-51.0); %Monocytes 6.6 % (0.0-10.0); %Neutrophils 84.4 % (42.0-75.0); Hemoglobin 7.9 g/dL (14.0-18.0); Mean Corpuscular HGB CONC 32.4 g/dL (32.0-36.0); Mean Corpuscular Hemoglobin 32.8 pg (27.0-31.0); Mean Platelet Volume 8.6 fL (7.4-10.4); Platelet Count 105 thou/uL (130-400); RBC Distribution Width 11.3 % (11.5-14.5); White Blood Cell (WBC) Count 8.1 thou/uL (4.8-10.8)
[2018-06-22] MEDS: Famotidine 20 MG TAB PO SCH (21:42)
[2018-06-22] MEDS: Atorvastatin Calcium 40 MG TAB PO SCH (21:42)
[2018-06-22] MEDS: Amiodarone 200 MG TAB PO SCH (21:42)
[2018-06-23] MEDS: Ketorolac Tromethamine 30 MG/ML VIAL IVP SCH ×4 (00:30→18:22)
[2018-06-23 04:30] LABS: #Eosinphils 0.1 thou/uL (0.0-0.7); #Lymphocytes 0.3 thou/uL (1.20-3.40); #Monocytes 0.6 thou/uL (0.11-0.59); #Neutrophils 5.1 thou/uL (1.40-6.50); %Basophils 0.2 % (0.0-1.0); %Eosinophils 0.8 % (0.0-10.0); %Lymphocytes 5.6 % (21.0-51.0); %Monocytes 9.2 % (0.0-10.0); %Neutrophils 84.2 % (42.0-75.0); Hemoglobin 7.7 g/dL (14.0-18.0); Mean Platelet Volume 8.9 fL (7.4-10.4); Platelet Count 105 thou/uL (130-400); RBC Distribution Width 11.3 % (11.5-14.5); Red Blood Cell (RBC) Count 2.33 mill/uL (4.70-6.10)
[2018-06-23 04:46] LABS: Anion Gap 9 mmol/L (10-20); BUN (Urea Nitrogen) 34 mg/dL (8.4-25.7); Calc. Creatinine Clearance 63 mL/min (70-130); Calcium 7.5 mg/dL (7.8-10.44); Carbon Dioxide 22 mmol/L (23-31); Chloride 94 mmol/L (98-107); Estimated GFR-MDRD 57; Glucose 114 mg/dL (83-110); Sodium 121 mmol/L (136-145)
--- NOTE | 2018-06-23 05:50 | PDOC.CTH ---
Cardiology Progress Note - Subjective Only complaining of dizziness, CP with inspiration - Objective Vital Signs Pulse Resp Pulse Ox 06/23/18 00:55 69 28 H 98 06/22/18 20:00 98 06/22/18 19:04 69 24 H 98 Weight 195 lb 1.745 oz 06/21/18 06/22/18 06/23/18 06:59 06:59 06:59 Intake Total 3722 2202 4175 Output Total 3522 235 6519 Balance 2497 1637 1820 - Physical Examination General/Neuro: alert & oriented x3, NAD Neck: carotid US brisk, no JVD present Lungs: CTA, unlabored respirations Heart: PMI normal, RRR Abdomen: no HSM, NT/ND, soft Extremities: + edema B - Labs Result Diagrams: 06/23/18 03:39 06/23/18 03:39 - Assessment/Plan AVR anemia dizziness Minimally invasive converted to open procedure On statin, ASA Pt also on amiodarone Hold BB secondary to low HR Dizziness may be secondary to amiodarone; if continues decrease to QAM dosing
[2018-06-23] MEDS: Amiodarone 200 MG TAB PO SCH ×2 (09:40→20:33)
[2018-06-23] MEDS: Aspirin 325 MG TAB PO SCH (09:40)
[2018-06-23 15:04] LABS: Sodium 122 mmol/L (136-145)
[2018-06-23] MEDS ORDERED: Mineral Oil ENEMA PR PRN (20:15)
[2018-06-23] MEDS ORDERED: Nitroglycerin 0.4 MG TAB (25 Tab Bottle) SL PRN (20:15)
[2018-06-23] MEDS: Atorvastatin Calcium 40 MG TAB PO SCH (20:33)
[2018-06-23] MEDS: Famotidine 20 MG TAB PO SCH (20:33)
[2018-06-24 04:54] LABS: #Eosinphils 0.1 thou/uL (0.0-0.7); #Lymphocytes 0.5 thou/uL (1.20-3.40); #Monocytes 0.6 thou/uL (0.11-0.59); #Neutrophils 3.8 thou/uL (1.40-6.50); %Basophils 0.3 % (0.0-1.0); %Eosinophils 2.5 % (0.0-10.0); %Lymphocytes 9.9 % (21.0-51.0); %Neutrophils 75.4 % (42.0-75.0); Hemoglobin 7.6 g/dL (14.0-18.0); Mean Corpuscular HGB CONC 33.4 g/dL (32.0-36.0); Mean Corpuscular Hemoglobin 33.1 pg (27.0-31.0); Mean Corpuscular Volume 99.1 fL (78.0-98.0); Mean Platelet Volume 8.4 fL (7.4-10.4); Platelet Count 122 thou/uL (130-400); RBC Distribution Width 11.3 % (11.5-14.5); Red Blood Cell (RBC) Count 2.28 mill/uL (4.70-6.10); White Blood Cell (WBC) Count 5.1 thou/uL (4.8-10.8)
[2018-06-24 05:20] LABS: Anion Gap 10 mmol/L (10-20); BUN (Urea Nitrogen) 30 mg/dL (8.4-25.7); Calc. Creatinine Clearance 88 mL/min (70-130); Calcium 7.7 mg/dL (7.8-10.44); Carbon Dioxide 23 mmol/L (23-31); Chloride 97 mmol/L (98-107); Estimated GFR-MDRD 81; Glucose 93 mg/dL (83-110); Potassium 4.3 mmol/L (3.5-5.1); Sodium 126 mmol/L (136-145)
[2018-06-24] MEDS: Amiodarone 200 MG TAB PO SCH ×2 (08:02→20:38)
[2018-06-24] MEDS: Aspirin 325 MG TAB PO SCH (08:02)
--- NOTE | 2018-06-24 09:02 | PDOC.CTH ---
Cardiology Progress Note - Subjective No complaints today. doing well - Objective Vital Signs Temp Pulse Resp BP Pulse Ox 06/24/18 08:22 100 06/24/18 08:19 79 20 100 06/24/18 04:00 98.7 F 74 17 106/84 98 06/24/18 00:00 98.3 F 73 18 122/64 98 Weight 201 lb 6.4 oz 06/23/18 06/24/18 06/25/18 06:59 06:59 06:59 Intake Total 4488 974 Output Total 1695 2190 Balance 1953 -1216 - Physical Examination General/Neuro: alert & oriented x3, NAD Neck: carotid US brisk, no JVD present Lungs: CTA, unlabored respirations Heart: PMI normal, RRR Abdomen: NT/ND, soft Extremities: + femoral B - Labs Result Diagrams: 06/24/18 03:47 06/24/18 03:47 - Assessment/Plan AVR anemia dizziness Dizziness resolved On BB, statin IP and PT
[2018-06-24] MEDS: Famotidine 20 MG TAB PO SCH (20:37)
[2018-06-24] MEDS: Atorvastatin Calcium 40 MG TAB PO SCH (20:37)
[2018-06-25] MEDS: HYDROcodone/Acetaminophen 5/325 mg Tablet PO PRN ×2 (00:16→21:25)
[2018-06-25 04:46] LABS: #Eosinphils 0.1 thou/uL (0.0-0.7); #Lymphocytes 0.5 thou/uL (1.20-3.40); #Monocytes 0.7 thou/uL (0.11-0.59); #Neutrophils 3.8 thou/uL (1.40-6.50); %Eosinophils 2.9 % (0.0-10.0); %Lymphocytes 9.9 % (21.0-51.0); %Monocytes 12.9 % (0.0-10.0); %Neutrophils 74.3 % (42.0-75.0); Hemoglobin 7.4 g/dL (14.0-18.0); Mean Corpuscular HGB CONC 32.8 g/dL (32.0-36.0); Mean Corpuscular Hemoglobin 32.6 pg (27.0-31.0); Mean Corpuscular Volume 99.6 fL (78.0-98.0); Mean Platelet Volume 7.3 fL (7.4-10.4); Platelet Count 166 thou/uL (130-400); RBC Distribution Width 11.3 % (11.5-14.5); Red Blood Cell (RBC) Count 2.27 mill/uL (4.70-6.10); White Blood Cell (WBC) Count 5.2 thou/uL (4.8-10.8)
[2018-06-25 05:05] LABS: Anion Gap 10 mmol/L (10-20); BUN (Urea Nitrogen) 19 mg/dL (8.4-25.7); Calc. Creatinine Clearance 100 mL/min (70-130); Calcium 7.8 mg/dL (7.8-10.44); Carbon Dioxide 24 mmol/L (23-31); Chloride 105 mmol/L (98-107); Estimated GFR-MDRD Greater than 90; Glucose 104 mg/dL (83-110); Potassium 4.1 mmol/L (3.5-5.1); Sodium 135 mmol/L (136-145)
[2018-06-25] MEDS: Amiodarone 200 MG TAB PO SCH ×2 (09:27→21:26)
[2018-06-25] MEDS: Aspirin 325 MG TAB PO SCH (09:27)
--- NOTE | 2018-06-25 20:31 | PDOC.CTH ---
Cardiology Progress Note - Subjective The pt seen and examined. No overnight events. No cardiac complaints. He walked twice today without any cardiac complaints. - Objective Vital Signs Temp Pulse Pulse Pulse Resp BP BP 06/25/18 19:45 98.9 F 86 18 06/25/18 19:07 76 18 06/25/18 15:17 98.6 F 79 18 06/25/18 11:23 98.4 F 75 18 06/25/18 08:52 82 76 115/62 125/67 BP Pulse Ox Pulse Ox 06/25/18 19:45 139/65 89 L 06/25/18 19:07 92 L 06/25/18 15:17 133/63 91 L 06/25/18 11:23 117/72 95 06/25/18 08:52 93 L Weight 203 lb 1 oz 06/24/18 06/25/18 06/26/18 06:59 06:59 06:59 Intake Total 974 1020 Output Total 2190 2100 Balance -1216 -1080 - Physical Examination General/Neuro: alert & oriented x3 Neck: no JVD present Lungs: CTA (diminished at bases) Heart: RRR Abdomen: soft Extremities: other: (No edema) - Telemetry Telemetry Rhythm: SR - Labs Result Diagrams: 06/25/18 04:07 06/25/18 04:07 - Assessment/Plan 1. s/p AV Replacement with Bioprosthetic valve on 06/20/18 - 2. Afib - remains in SR; on Amiodarone 400mg BID since 06/22/18 @ 2100; on ASA 325mg qd. 3. 1V CAD - stable; not on BBlocker or JEYSON/ARB due to hypotensive and complains of Dizziness 4. Dizziness - stable 5. Hyperlipidemia - 6. Anemia - No changed; cont. to monitor 7. Diastolic dysfunction - stable MAR reviewed Review of Systems - Review of Systems Constitutional: reports: no symptoms reported EENTM: reports: no symptoms reported Respiratory: reports: no symptoms reported Cardiac (ROS): reports: no symptoms reported ABD/GI: reports: no symptoms reported : reports: no symptoms reported Musculoskeletal: reports: no symptoms reported
[2018-06-25] MEDS: Atorvastatin Calcium 40 MG TAB PO SCH (21:26)
[2018-06-25] MEDS: Famotidine 20 MG TAB PO SCH (21:26)
[2018-06-26] MEDS: Amiodarone 200 MG TAB PO SCH ×2 (09:02→21:33)
[2018-06-26] MEDS: Aspirin 325 MG TAB PO SCH (09:02)
[2018-06-26] MEDS: HYDROcodone/Acetaminophen 5/325 mg Tablet PO PRN ×2 (09:05→21:35)
--- NOTE | 2018-06-26 11:47 | PDOC.CTH ---
Cardiology Progress Note - Objective Vital Signs Temp Pulse Resp BP Pulse Ox 06/26/18 09:54 78 157/71 H 06/26/18 08:00 98.2 F 82 20 189/82 H 90 L 06/26/18 07:40 90 L 06/26/18 06:57 81 16 93 L 06/26/18 03:30 97.5 F L 76 18 140/71 95 06/26/18 00:48 73 18 96 06/25/18 23:59 97.9 F 79 18 163/71 H 96 Weight 199 lb 6.4 oz 06/25/18 06/26/18 06/27/18 06:59 06:59 06:59 Intake Total 1020 300 Output Total 2100 Balance -1080 300 - Physical Examination General/Neuro: alert & oriented x3 Neck: no JVD present Lungs: other: (right sided expiratory wheezing) Heart: RRR Abdomen: NT/ND, soft - Telemetry Telemetry Rhythm: NSR - Labs Result Diagrams: 06/25/18 04:07 06/25/18 04:07 - Assessment/Plan 1. s/p AV Replacement with Bioprosthetic valve on 06/20/18 - 2. Afib - remains in SR; on Amiodarone 400mg BID since 06/22/18 @ 2100; on ASA 325mg qd. 3. 1V CAD - stable; not on BBlocker or JEYSON/ARB due to hypotensive and complains of Dizziness 4. Dizziness - stable 5. Hyperlipidemia - 6. Anemia - No changed; cont. to monitor 7. Diastolic dysfunction - stable 8. HTN. MAR reviewed
[2018-06-26] MEDS ORDERED: Lisinopril 5 MG TAB PO SCH (12:11)
[2018-06-26] MEDS ORDERED: Hydrochlorothiazide 25 MG TAB PO SCH ×2 (12:11→12:45)
[2018-06-26] MEDS ORDERED: hydrALAZINE 20 MG/ML VIAL SLOW IVP PRN (12:12)
[2018-06-26] MEDS ORDERED: Amiodarone 200 MG TAB PO SCH ×2 (12:13→12:45)
[2018-06-26] MEDS: Amlodipine 5 MG TAB PO SCH (12:16)
[2018-06-26] MEDS: Atorvastatin Calcium 40 MG TAB PO SCH (21:33)
[2018-06-26] MEDS: Famotidine 20 MG TAB PO SCH (21:35)
--- NOTE | 2018-06-27 02:58 | DIS ---
DATE OF ADMISSION: 06/20/2018 DATE OF DISCHARGE: 06/26/2018 DIAGNOSIS: Aortic stenosis. PROCEDURES: Aortic valve replacement with a number 23 Intuity bioprosthetic valve. DESCRIPTION OF HOSPITAL STAY: Mr. Interiano was admitted for aortic valve replacement. He underwen t the procedure on 06/20/2018. Postoperatively, he has done well. He had 1 bout of atrial fibrillat ion, which has been controlled atrial fibrillation with amiodarone. At the time of discharge, he is ambulatory, tolerating a regular diet, having good bowel and bladder function. Incisions are clean a nd dry without evidence of infection. DISCHARGE MEDICATIONS: Include, 1. Aspirin 325 mg daily. 2. Lipitor 40 mg at bedtime. 3. HCTZ 12.5 mg daily. 4. Flomax 0.4 mg daily. 5. Norvasc 5 mg daily. 6. Amiodarone 200 mg b.i.d. for 3 months. 7. Mylo 5/325, 1-2 q.6 hours p.r.n. pain. FOLLOWUP: With me in [address] Castro in a month.
[2018-06-27 04:20] VITALS: TEMP 98.4
[2018-06-27] MEDS: Amiodarone 200 MG TAB PO SCH (08:19)
[2018-06-27] MEDS: Aspirin 325 MG TAB PO SCH (08:19)
[2018-06-27] MEDS ORDERED: Hydrochlorothiazide 25 MG TAB PO SCH (09:00)
[2018-06-27] MEDS ORDERED: Lisinopril 10 MG TAB PO SCH (11:30)
[2018-06-27 11:57] VITALS: BP 143/68
[2018-06-27] MEDS: Amlodipine 5 MG TAB PO SCH (12:33)
--- NOTE | 2018-06-27 12:39 | PDOC.CTH ---
Cardiology Progress Note - Subjective The pt seen and examined. No overnight events. No cardiac complaints. - Objective Vital Signs Temp Pulse Resp BP BP Pulse Ox 06/27/18 12:33 143/68 H 06/27/18 11:56 143/68 H 06/27/18 10:32 154/74 H 06/27/18 07:14 81 15 95 06/27/18 06:32 80 182/88 H 06/27/18 04:00 98.4 F 80 20 165/77 H 95 Weight 195 lb 06/26/18 06/27/18 06/28/18 06:59 06:59 06:59 Intake Total 850 Balance 850 - Physical Examination General/Neuro: alert & oriented x3 Neck: no JVD present Lungs: CTA Heart: RRR Abdomen: soft Extremities: other: (No edema) - Telemetry Telemetry Rhythm: SR - Labs Result Diagrams: 06/25/18 04:07 06/25/18 04:07 - Assessment/Plan 1. S/p AV Replacement with Bioprosthetic valve on 06/20/18 - stable 2. Afib - remains in SR; on Amiodarone 400mg BID since 06/22/18 @ 2100; on ASA 325mg qd for high risk for falls. 3. 1V CAD - stable; On Lisinopril 10mg qd. 4. Dizziness - stable 5. Hyperlipidemia - on Statin 6. Anemia - No changed; cont. to monitor 7. Diastolic dysfunction - stable 8. HTN - Lisinopril 10mg qd was started from today. Norvasc 5mg 1 tab qd from today. The pt will f/u with Dr Falcon within 2wks. MAR reviewed * From Cardiac standpoint, the pt is stable to d/c home. Written prescription for Lisinopril 10mg qd will be given to the pt. The pt already has f/u with Dr Castro per . Review of Systems - Review of Systems Constitutional: reports: no symptoms reported EENTM: reports: no symptoms reported Respiratory: reports: no symptoms reported Cardiac (ROS): reports: no symptoms reported ABD/GI: reports: no symptoms reported : reports: no symptoms reported Musculoskeletal: reports: no symptoms reported
[2018-06-28] MEDS ORDERED: Lisinopril 10 MG TAB PO SCH (09:00)
--- NOTE | 2018-06-28 13:57 | PQF ---
[employer] Supervising Deputy Crystal Reports [employer] CaliVANESAZOHOUSTONLISANDRO BRII LEGGETT, JUSTINE Menjivar MD [id number] CLINICAL DOCUMENTATION CLARIFICATION FORM: POST DISCHARGE Please exercise your independent, professional judgment in responding to the clarification form. Clinical indicators are provided on the bottom of this form for your review Please check appropriate box(s): [ ] Acute blood loss anemia [ ] Post-op anemia related to acute blood loss [ ] Precipitous drop in hematocrit without anemia [ ] Anemia, not otherwise specified [ ] Other diagnosis [ x ] Unable to determine In addition, please specify: Present on Admission (POA): [ ] Yes [ ] No [ ] Unable to determine CLINICAL INDICATORS - SIGNS / SYMPTOMS / LABS Anemia diagnosis noted on 06/[address] Martinez 06/20/18 06/21/18 06/22/18 06/23/18 Hgb 10.6 L 9.6 L 7.9 L 7.7 L Hct 33.4 L 29.7 L 24.3 L 23.3 L RISK FACTORS Surgery TREATMENTS: 06/25 cardiology progress note, "Anemia -no changed; cont. to monitor" (This form is maintained as a part of the permanent medical record) 2014 [employer], [employer] ([employer] All Rights Reserved Ayah [email or web address] [phone] MTDD
== END 2018-06-27 12:58 | disposition home or self-care (01) | DRG 221 ==
LOC: SURG A 05:43 → CCU 11:06 → IMCU/EMU 06-23 20:00 → 2SE 06-24 23:52
PROVIDERS: ADMIT Thoracic Surgery (Cardiothoracic Vascular Surgery); ATTEND Thoracic Surgery (Cardiothoracic Vascular Surgery)
PROC: X2RF032 Replacement of Aortic Valve using Zooplastic Tissue, Rapid Deployment Technique, Open Approach, New Technology Group 2 (ICD-10-PCS; principal; 2018-06-20)
PROC: 5A1221Z Performance of Cardiac Output, Continuous (ICD-10-PCS; 2018-06-20)
DX: I35.0 Nonrheumatic aortic (valve) stenosis (principal); I25.10 Atherosclerotic heart disease of native coronary artery without angina pectoris; I10 Essential (primary) hypertension; N99.0 Postprocedural (acute) (chronic) kidney failure; I48.91 Unspecified atrial fibrillation; D64.9 Anemia, unspecified; R42 Dizziness and giddiness; E78.2 Mixed hyperlipidemia; Z53.39 Other specified procedure converted to open procedure; Z79.82 Long term (current) use of aspirin; Z86.69 Personal history of other diseases of the nervous system and sense organs
CPT/HCPCS: 36415; 36416; 36430; 71045; 76000; 80048; 85025; 85610; 85730; 86850; 86900; 86901; 90471; 90662; 93005; 93010; 93798; 94150; 94640; G0008; J0282; J0360; J1642; J1644; J1815; J1885; J1940; J2001; J2150; J2250; J2270; J2405; J2720; J3010; J3370; J3475; J3480; J7050; J7070; J7620; P9045; P9047; Q9961; S0017; S0028

== ENCOUNTER 2019-06-13 22:23 | Inpatient (IN) | payer BC, MEDICARE ==
[~2019-06-13 22:23] MED LIST: ISOVUE-370 76%-LOCM 1 ML ONE
[2019-06-13 23:09] LABS: Hemoglobin 12.4 g/dL (14.0-18.0); Mean Corpuscular HGB CONC 33.4 g/dL (32.0-36.0); Mean Corpuscular Hemoglobin 33.9 pg (27.0-31.0); Mean Platelet Volume 7.9 fL (7.4-10.4); Platelet Count 173 thou/uL (130-400); RBC Distribution Width 12.6 % (11.5-14.5); Red Blood Cell (RBC) Count 3.67 mill/uL (4.70-6.10); White Blood Cell (WBC) Count 8.6 thou/uL (4.8-10.8)
[2019-06-13 23:21] LABS: Hypochromia SLIGHT = 6-15 cells (100X) (0-5/hpf); Lymphocytes 6 % (21-51); MDiff Complete? YES; Macrocytosis SLIGHT = 6-15 cells (100X) (0-5/hpf); Monocytes 8 % (0-10); Neutrophil 86 % (42-75); Platelet Morphology Comment Appears Adequate
[2019-06-13 23:25] LABS: INR-International Normal Ratio 1.4; Prothrombin Time 16.8 SEC (12.0-14.7)
[2019-06-13 23:27] LABS: ALT (SGPT) 564 U/L (8-55); AST (SGOT) 336 U/L (5-34); Albumin 3.6 g/dL (3.4-4.8); Alkaline Phosphatase 341 U/L (40-110); Anion Gap 11 mmol/L (10-20); BUN (Urea Nitrogen) 23 mg/dL (8.4-25.7); Bilirubin, Total 4.7 mg/dL (0.2-1.2); Calc. Creatinine Clearance 0 mL/min (70-130); Calcium 8.5 mg/dL (7.8-10.44); Carbon Dioxide 24 mmol/L (23-31); Chloride 98 mmol/L (98-107); Estimated GFR-MDRD 49; Globulin 2.7 g/dL (2.4-3.5); Glucose 128 mg/dL (83-110); Lipase 16 U/L (8-78); Potassium 3.7 mmol/L (3.5-5.1); Protein, Total 6.3 g/dL (5.8-8.1); Sodium 129 mmol/L (136-145)
--- NOTE | 2019-06-13 23:44 | CT ---
CT ABDOMEN WITH CONTRAST CT PELVIS WITH CONTRAST: DATE: 06/13/2019 HISTORY: 78-year-old male with abdominal distention and abdominal pain. COMPARISON: None available TECHNIQUE: IV injection of iodinated contrast media: administered. Oral contrast media:Not administered FINDINGS: Gallbladder is distended. There is mild mural thickening and mildly increased mural enhancement. Mini mal pericholecystic fluid. There are several focal tiny calcified gallstones in the proximal body and slightly larger ones in the neck, of the gallbladder. There are several tiny gallstones in the cy stic duct and common bile duct. The common hepatic duct is dilated to approximately 14 mm. The common bile duct is mildly dilated to approximately 7 mm. The pancreatic duct is proximally dilated t o approximately 7 mm. The entire pancreatic duct is dilated. No signs of acute pancreatitis. Mild diffuse intrahepatic biliary ductal dilation. No focal hepatic abscess, cyst, or solid lesion. 3.5 cm exophytic cyst protruding from posterior surface of right renal upper pole. No hydronephrosis bilaterally. No pyelonephritis. Normal adrenals and spleen. No abdominal aortic aneurysm. Mild diffuse mural thickening of nondistended urinary bladder, nonspecific. Medialized, right upper quadra nt position of cecum. Appendix difficult to identify. No small bowel dilation. No signs of colonic diverticulitis. A few diverticula at splenic flexure and descending colon. No pneumoperitoneum. Broad flat region of consolidation at base of left lower lobe, nonspecific, perhaps atelectasis although pneumonia and aspiration cannot be completely excluded. IMPRESSION: 1) choledocholithiasis causing at least partial obstruction of the common bile duct and pancreatic du ct. 2.) Cholelithiasis. 3) suspicious for acute cholecystitis, probably due to the choledocholithiasis and cholelithiasis in the gallbladder neck.
[2019-06-13 23:47] LABS: Bilirubin 2+ (Negative); Blood, Urine 1+ (Negative); Clarity Turbid (Clear); Glucose, Urine (Dipstick) 30 mg/dL (Negative); Leukocyte Negative Leu/uL (Negative); Nitrite Negative (Negative); Protein, Urine (Dipstick) 50 mg/dL (Neg-Trace); RBC/HPF 0-3 HPF (0-3); Squamous Epithelial 0-3 HPF (0-3); Urobilinogen 3 mg/dL (Less than 2); WBC/HPF 21-50 HPF (0-3)
[2019-06-13] MEDS ORDERED: Piperacillin/Tazobactam 4.5 GM VIAL ONE (23:53)
[2019-06-14 00:04] LABS: Bacteria/HPF 1+ HPF (None Seen)
[2019-06-14 00:56] LABS: HBCM Index 0.04 S/CO (0-0.79); HBSAg Index 0.21 S/CO (0-0.99); Hep A IgM AB Non-Reactive (NonReactive); Hep B Surf Ag Non-Reactive S/CO (NonReactive); Hep C IgG Ab Non-Reactive (NonReactive); Hep C Index 0.08 S/CO (0-0.79); Hepatitis B Core IgM Abs Non-Reactive (NonReactive)
[2019-06-14] MEDS ORDERED: Ondansetron ODT 4 MG TAB SL PRN (01:53)
[2019-06-14] MEDS ORDERED: Ondansetron PF 4 MG/2 ML Vial IVP PRN ×2 (01:53→10:32)
[2019-06-14 01:59] VITALS: BMI 26.6
[2019-06-14] MEDS: Lactated Ringer's 1,000 ML IV SCH ×2 (02:15→10:13)
[2019-06-14] MEDS ORDERED: Piperacillin/Tazobactam 4.5 GM in Sodium Chloride 0.9% 100 ML IVPB SCH (06:00)
[2019-06-14] MEDS ORDERED: FLU VACC TS2019-20(65YR UP)/PF 180 MCG/0.5 ML SYRINGE IM ONE (09:00)
[2019-06-14 09:36] LABS: ALT (SGPT) 483 U/L (8-55); AST (SGOT) 277 U/L (5-34); Albumin 3.2 g/dL (3.4-4.8); Alkaline Phosphatase 294 U/L (40-110); Anion Gap 11 mmol/L (10-20); BUN (Urea Nitrogen) 18 mg/dL (8.4-25.7); Bilirubin, Total 3.8 mg/dL (0.2-1.2); Calc. Creatinine Clearance 68 mL/min (70-130); Calcium 8.4 mg/dL (7.8-10.44); Carbon Dioxide 27 mmol/L (23-31); Chloride 104 mmol/L (98-107); Estimated GFR-MDRD 65; Glucose 91 mg/dL (83-110); Lipase 6 U/L (8-78); Potassium 3.6 mmol/L (3.5-5.1); Protein, Total 5.8 g/dL (5.8-8.1); Sodium 138 mmol/L (136-145)
[2019-06-14 09:43] LABS: Band 1 % (5-11); Hemoglobin 12.6 g/dL (14.0-18.0); Lymphocytes 2 % (21-51); MDiff Complete? YES; Mean Corpuscular HGB CONC 32.8 g/dL (32.0-36.0); Mean Corpuscular Hemoglobin 33.6 pg (27.0-31.0); Mean Platelet Volume 7.6 fL (7.4-10.4); Monocytes 4 % (0-10); Neutrophil 93 % (42-75); Platelet Count 175 thou/uL (130-400); Platelet Morphology Comment Appears Adequate; RBC Distribution Width 12.8 % (11.5-14.5); Red Blood Cell (RBC) Count 3.73 mill/uL (4.70-6.10); White Blood Cell (WBC) Count 5.6 thou/uL (4.8-10.8)
--- NOTE | 2019-06-14 10:16 | CON ---
DATE OF CONSULTATION: 06/14/2019 REASON FOR CONSULTATION: Choledocholithiasis. HISTORY OF PRESENT ILLNESS: Siva Interiano is a very pleasant 78-year-old man, who was admitted to the hospital overnight about 1 week ago, he started developing fatigue, loss of appetite, and nausea. He has had no vomiting but has had some hiccups, some chills. Over the past few days, he has also been noted to have new scleral icterus and also started developing some abdominal pain. This is fairly generalized, but last night was localizing more to the right upper quadrant. Upon presentation, he was found to have significant LFT elevation with total bilirubin up to 4.7 as well as elevated transaminases. He also has some degree of acute kidney injury with creatinine 1.41. Abdominal imaging with CT demonstrates gallbladder wall thickening and gallbladder dilation. There is cholelithiasis and also multiple tiny stones within the common bile duct and the cystic duct. The common hepatic duct is dilated to 14 mm and a common bile duct also dilated to 7 mm. The pancreatic duct is also dilated at 7 mm throughout its course. The patient was started on Zosyn as well as analgesia and he is currently feeling pretty well this morning. He has been made n.p.o. Surgery has been consulted as well. REVIEW OF SYSTEMS: Full review of systems including constitutional, head, eyes, ears, nose, throat, GI, , cardiovascular, respiratory, musculoskeletal, neurologic systems is negative except as noted in the HPI. PAST MEDICAL HISTORY: Prostatic hypertrophy, arthritis, hernia repair, varicose veins, tonsillectomy, bilateral shoulder surgery, and aortic valve replacement. SOCIAL HISTORY: One alcoholic beverage per day. No smoking. No drug use. FAMILY HISTORY: Noncontributory. ALLERGIES: NO KNOWN DRUG ALLERGIES. MEDICATIONS: Outpatient medications: 1. Aspirin 325 mg daily. 2. Amlodipine. 3. Flomax. 4. Multivitamin. 5. Zetia. 6. Atorvastatin. Inpatient medications: Zosyn IV. PHYSICAL EXAMINATION: VITAL SIGNS: Temperature 97.5, pulse 75, blood pressure 117/65, and oxygen saturation 93% on room air. GENERAL: A 78-year-old man, lying in bed comfortably, in no distress. SKIN: Mild jaundice. No rashes were palpable. EYES: Mild scleral icterus. Extraocular movements intact. ENT: Mucous membranes moist. No oral lesions. LYMPH: No submandibular or supraclavicular lymphadenopathy. THYROID: Nontender to palpation. HEART: Regular rate and rhythm. LUNGS: Clear to auscultation bilaterally. ABDOMEN: Bowel sounds are present. Soft. Some generalized tenderness to palpation mostly in the right upper quadrant, but no guarding or rebound tenderness. EXTREMITIES: No peripheral edema. VESSELS: Radial pulses 2+ bilaterally. NEURO: Cranial nerves II through XII intact bilaterally. No focal deficits. LABORATORY STUDIES: WBC 8.6, hemoglobin 12.4, and platelets 173. INR 1.4. Total bilirubin up to 4.7, alkaline phosphatase 341, AST 336, ALT 564, and albumin 3.6. Lipase is 16. Lactic acid 0.7. Ammonia 23. Acetaminophen level is negative. Viral hepatitis serologies are all negative. BUN 23, creatinine 1.41. IMAGING STUDIES: CT of the abdomen and pelvis demonstrates dilation of the gallbladder, common hepatic duct and common bile duct as well as the pancreatic duct. The common hepatic duct measures 14 mm. The common bile duct and pancreatic duct both measures 7 mm. There are multiple stones within the cystic duct as well as the common bile duct. ASSESSMENT AND PLAN: 1. Choledocholithiasis. 2. Biliary and pancreatic duct dilation. 3. Elevated LFTs, secondary to choledocholithiasis. I had a long discussion with the patient and his family regarding the imaging and laboratory findings. He has confirmed choledocholithiasis, based on imaging. Interestingly, the common hepatic duct is more significantly dilated than the common bile duct and there are stones in the cystic duct. 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 We will plan for ERCP later today. I understand surgical consultation is pending as well. We discussed the potential risks and benefits of ERCP. We will likely perform biliary sphincterotomy and balloon sweep of the common bile duct. Following this hospitalization, we would also consider sending the patient for endoscopic ultrasound referral, due to the degree of pancreatic ductal dilation. No mass was demonstrated on the CT scan, but this should be definitively ruled out. Job ID: [id number]
[2019-06-14] MEDS ORDERED: Calcium Carbonate 500 MG ChewTAB PO PRN (10:32)
[2019-06-14] MEDS ORDERED: Ondansetron ODT 4 MG TAB PO PRN (10:32)
[2019-06-14] MEDS ORDERED: Senokot S 8.6-50 MG TAB PO PRN (10:32)
--- NOTE | 2019-06-14 11:04 | HP ---
CHIEF COMPLAINT: Abnormal LFTs. HISTORY OF PRESENT ILLNESS: The patient is a 78-year-old male, who presented from his primary care physician's office due to abnormal LFTs. Over the past 1 week, he has been feeling generally weak and fatigued. He had some nausea along with right upper quadrant abdominal discomfort. He has also lost his appetite. He denies any vomiting. He felt feverish and had some chills. He, however, did not record his temperature. He was evaluated by his PCP and was found to have elevated bilirubin. He was sent to the emergency room for evaluation. The patient denies any use of [id number] medications. He drinks on a daily basis up to one drink a day. He denies recent travel. No constipation or diarrhea reported. PAST MEDICAL HISTORY: 1. Hypertension. 2. Degenerative joint disease. 3. History of aortic valve replacement with bioprosthetic valve in 2018. 4. Benign prostatic hypertrophy. PAST SURGICAL HISTORY: 1. Varicose veins. 2. Hernia repair. 3. Nasal surgery. 4. Tonsillectomy. 5. Bilateral shoulder surgery. 6. Bioprosthetic aortic valve replacement. CURRENT HOME MEDICATIONS: The patient is unable to recall all of his blood pressure medications. Family to provide accurate list of medications. SOCIAL HISTORY: As discussed above, no current use of smoking or drug use. He is full code and makes his own decision with the help of his family. FAMILY HISTORY: Positive for diabetes in his mother. Sister with malignancy. REVIEW OF SYSTEMS: All other review of systems was reviewed and was found negative. PHYSICAL EXAMINATION: VITAL SIGNS: In the emergency, room showed temperature 98.5, respirations 16, pulse 76, blood pressure 109/54, O2 saturation 98% on room air. GENERAL: A 78-year-old male, in mild distress due to abdominal discomfort. HEENT: Head, atraumatic and normocephalic. Sclerae are anicteric. Dry mucous membrane. No oral lesion. NECK: Supple. No JVD. No carotid bruit. LUNGS: Clear to auscultation bilaterally. No wheezing, rales, or rhonchi. HEART: S1 and S2 present. Healed midline scar from previous open-heart surgery. No heaves or pulsation. ABDOMEN: Soft. There is [id number] tenderness in the right upper quadrant. No rebound or guarding. No costovertebral angle tenderness. EXTREMITIES: No edema or calf tenderness. NEUROLOGIC: Grossly nonfocal. Moves all 4 extremities. PSYCHIATRIC: Alert, awake, and oriented x3. SKIN: Warm and dry. LYMPH NODES: No palpable lymph nodes in the neck. PERIPHERAL VASCULAR: Radial pulses palpable bilaterally. MUSCULOSKELETAL: No joint swelling or tenderness. LABORATORY FINDINGS: CBC showed WBC 8.6 with hemoglobin 12.4, hematocrit 37.2, platelets 173. Total bilirubin 4.7 with AST 336, ALT 564, alkaline phosphatase 341. Ammonia was 23. Lipase was 16. Creatinine 1.41. Urinalysis showed 21 to 50 wbc's with 1+ bacteria. Acute hepatitis profile was negative. CT scan of the abdomen and pelvis by my review showed gallbladder distention with some thickening. It also showed choledocholithiasis. IMPRESSION: 1. Nausea with abdominal discomfort. His workup is consistent with acute choledocholithiasis with suspected acute cholecystitis. 2. Acute kidney injury on chronic kidney disease, stage 2. 3. Hyponatremia, secondary to dehydration. 4. Chronic anemia, macrocytic chronic anemia. 5. Hypertension. 6. Hyperlipidemia. 7. Benign prostatic hypertrophy. 8. Degenerative joint disease. 9. History of bioprosthetic aortic valve replacement. PLAN: The patient will be monitored on the surgical floor. We will change IV fluid to D5 half NS. We will recheck LFTs today. Consult General Surgery and Gastroenterology Service. The patient will be kept n.p.o. We will avoid hepatotoxic agents. Recheck labs in a.m. Plan of care was discussed with the patient in detail. He stated understanding. Job ID: [id number]
[2019-06-14] MEDS ORDERED: Succinylcholine Chloride 20 MG/ML 10 ml SYRINGE FS ONE (11:06)
[2019-06-14] MEDS ORDERED: PROPOFOL 200 MG/20 ML VIAL ONE (11:06)
[2019-06-14] MEDS ORDERED: Glycopyrrolate 0.2 MG/ML 5 ML SYRINGE ONE (11:06)
[2019-06-14] MEDS ORDERED: Lidocaine 1% PF 5 ML VIAL ONE (11:06)
[2019-06-14] MEDS ORDERED: PHENYLEPHRINE-NS 100 MCG/ML 10 ML SYRINGE ONE (11:06)
[2019-06-14] MEDS ORDERED: ePHEDrine 50 MG/ML VIAL ONE (11:06)
[2019-06-14] MEDS: Dextrose 5 %-0.45 % NaCl 1,000 ML IV SCH (11:57)
[2019-06-14] MEDS: Piperacillin/Tazobactam 3.375 GM in Sodium Chloride 0.9% 100 ML IVPB SCH ×2 (11:58→18:34)
[2019-06-14] MEDS ORDERED: Indomethacin 50 MG SUPP ONE (12:35)
[2019-06-14] MEDS ORDERED: Iothalamate Meglumine 60% 50 ML VIAL FS ONE (12:35)
[2019-06-14] MEDS ORDERED: Midazolam HCl 2 mg/2 ml Vial ONE (13:03)
[2019-06-14] MEDS ORDERED: Fentanyl 100 MCG/2 ML VIAL ONE (13:03)
--- NOTE | 2019-06-14 14:24 | RAD ---
EXAM: XR ERCP PROVIDED CLINICAL HISTORY: Cholelithiasis with intra and extrahepatic biliary ductal dilatation. COMPARISON: CT abdomen on 06/13/2019 FINDINGS/IMPRESSION: Single provided intraoperative fluoroscopic image of the right upper quadrant is submitted for interp retation. The common duct is cannulated with guidewire in the common duct. There is mild dilatation of the common duct. There is mild prominence of the most proximal intrahepatic bile ducts. There is a slightly irregular filling defect within the common duct proximal to the expected location of the pancreatic duct. A filling defect related to calculus is a possibility. Given the irregular margins, this is not suggestive of a gas bubble. Images demonstrating free spill of contrast into the duodenum are not provided. Correlation with intraoperative findings is recommended.
--- NOTE | 2019-06-14 16:00 | OP ---
DATE OF PROCEDURE: 06/14/2019 LITHODUPLICATOR OPERATOR SURGEON: None. PROCEDURES PERFORMED: Endoscopic retrograde cholangiopancreatography with biliary sphincterotomy, biliary sludge extraction, and ampullary biopsies. INDICATION: A 78-year-old man with choledocholithiasis, biliary and pancreatic ductal dilation on imaging. MEDICATIONS: 1. See Anesthesia record. 2. Indomethacin 100 mg per rectum, as prophylaxis against post ERCP pancreatitis. FINDINGS: After discussion of the risks, benefits, and alternatives of the procedure, informed consent was obtained and witnessed. Pre-endoscopic cardiopulmonary examination was satisfactory. Time-out was performed before sedation was achieved. Sedation was achieved with Anesthesia assistance in the endoscopy unit. The patient was placed in a semiprone position on the fluoroscopy table. A Pentax adult side-viewing duodenoscope was advanced beyond the oropharynx and esophagus, beyond the pylorus and into the second portion of the duodenum. The ampulla was brought into view with the endoscope in the short position. The ampulla was quite prominent and edematous with some mucus covering it. It essentially appeared masslike; however, the ampullary opening was easily visible. There was some free flow of bile spontaneously seen coming from the ampulla. Using a triple lumen dome-tipped sphincterotome and a 0.035 guidewire, we selectively cannulated the common bile duct. The guidewire was passed up into the left intrahepatic ductal system. Cholangiogram was then performed. This demonstrated dilation of the common bile duct all the way up into the intrahepatic ducts. There were some diffuse subtle filling defects throughout the common bile duct. No discrete biliary stricture or large stones identified. The cystic duct did not fill. At this point, a generous biliary sphincterotomy was performed. The sphincterotome was then exchanged for a 12 to 15 mm extraction balloon. Multiple passes were made of the common bile duct with the balloon partially and fully inflated. In this fashion, we were able to extract a copious amount of biliary sludge. Following this, I irrigated the biliary tree with 50 mL of sterile water. At this point, biopsy forceps were passed down the endoscope and multiple biopsies were taken of the patient's prominent ampulla. The biopsy tissue was firm in consistency. Bleeding was minimal. At this point, the endoscope was completely withdrawn suctioning out excess air and fluid, and the procedure was complete. Postprocedure fluoroscopic images demonstrated no retroperitoneal or subdiaphragmatic free air. The patient tolerated the procedure well. There were no immediate postprocedure complications. IMPRESSION: 1. Prominent ampulla, masslike in appearance. Multiple biopsies obtained. 2. Common bile duct dilation. The cystic duct did not fill. 3. Copious common bile duct sludge, now status post successful biliary sphincterotomy and sludge extraction with balloon sweep and irrigation. RECOMMENDATIONS: 1. Surgical consultation for consideration of cholecystectomy. 2. Clear liquid diet tonight. 3. Trend LFTs. 4. Follow up ampullary biopsy results. 5. Monitor for potential complications including post ERCP pancreatitis. Job ID: [id number]
--- NOTE | 2019-06-14 16:31 | CON ---
DATE OF CONSULTATION: 06/14/2019 CHIEF COMPLAINT: Choledocholithiasis. HISTORY OF PRESENT ILLNESS: This is a 78-year-old male, who presents with a history of pain in his upper abdomen, seen in the emergency department. The pain is described as sharp, does not radiate in the right upper quadrant. It has improved since admission. The pain is associated with nausea, no vomiting. He was found to have significant elevation of his bilirubin and evidence of choledocholithiasis on his CAT scan. He underwent ERCP this afternoon by Dr. Fontanez and ampullary biopsy. I have been consulted for cholecystectomy. PAST MEDICAL HISTORY: Includes hypertension, DJD, aortic valve replacements in 2018, and BPH. SURGICAL HISTORY: Hernia, tonsillectomy, aortic valve, and varicose veins. SOCIAL HISTORY: No smoking, alcohol. No other drugs. REVIEW OF SYSTEMS: Ten-system review of systems is otherwise negative unless described above. ALLERGIES: NO KNOWN DRUG ALLERGIES. PHYSICAL EXAMINATION: VITAL SIGNS: His blood pressure is 130/75, pulse 81, respirations 18, he is afebrile. HEENT: Sclerae anicteric. Oropharynx is clear. NECK: No lymphadenopathy. CHEST: Clear. HEART: Regular rate. ABDOMEN: Soft. Tender right upper quadrant with no guarding or rebound. No abdominal or inguinal hernias. EXTREMITIES: No ischemia or edema to extremities. ASSESSMENT: Choledocholithiasis, history of cholelithiasis. PLAN: Laparoscopic cholecystectomy tomorrow. Risks, benefits, and alternatives were discussed. He gives consent. We will do this tomorrow. Job ID: [id number]
[2019-06-14] MEDS: Tamsulosin HCl 0.4 MG CAP PO SCH (22:00)
[2019-06-14] MEDS: Famotidine/PF 20 mg/2ml Vial SLOW IVP SCH (22:01)
[2019-06-14] MEDS ORDERED: diphenhydrAMINE 50 MG/ML VIAL IVP PRN (22:10)
[2019-06-15] MEDS: Piperacillin/Tazobactam 3.375 GM in Sodium Chloride 0.9% 100 ML IVPB SCH ×2 (00:32→05:34)
[2019-06-15] MEDS: Dextrose 5 %-0.45 % NaCl 1,000 ML IV SCH (00:33)
[2019-06-15 05:05] LABS: Band 7 % (5-11); Elliptocytes SLIGHT = 2-5 cells (100X) (0-1/hpf); Hemoglobin 11.4 g/dL (14.0-18.0); Hypochromia SLIGHT = 6-15 cells (100X) (0-5/hpf); Lymphocytes 10 % (21-51); MDiff Complete? YES; Macrocytosis SLIGHT = 6-15 cells (100X) (0-5/hpf); Mean Corpuscular HGB CONC 32.6 g/dL (32.0-36.0); Mean Corpuscular Hemoglobin 33.7 pg (27.0-31.0); Mean Platelet Volume 7.6 fL (7.4-10.4); Monocytes 6 % (0-10); Neutrophil 77 % (42-75); Platelet Count 170 thou/uL (130-400); Platelet Morphology Comment Appears Adequate; RBC Distribution Width 12.9 % (11.5-14.5); Red Blood Cell (RBC) Count 3.39 mill/uL (4.70-6.10); White Blood Cell (WBC) Count 4.8 thou/uL (4.8-10.8)
[2019-06-15 05:06] LABS: ALT (SGPT) 350 U/L (8-55); AST (SGOT) 180 U/L (5-34); Albumin 2.8 g/dL (3.4-4.8); Alkaline Phosphatase 231 U/L (40-110); Anion Gap 7 mmol/L (10-20); BUN (Urea Nitrogen) 19 mg/dL (8.4-25.7); Bilirubin, Direct 1.6 mg/dL (0.1-0.3); Calc. Creatinine Clearance 64 mL/min (70-130); Calcium 7.6 mg/dL (7.8-10.44); Carbon Dioxide 25 mmol/L (23-31); Chloride 105 mmol/L (98-107); Estimated GFR-MDRD 60; Glucose 105 mg/dL (83-110); Lipase Less than 4 U/L (8-78); Potassium 3.4 mmol/L (3.5-5.1); Protein, Total 5.2 g/dL (5.8-8.1); Sodium 134 mmol/L (136-145)
[2019-06-15] MEDS ORDERED: Bupivacaine/Epinephrine 0.25% 30 ML VIAL ONE (07:27)
[2019-06-15] MEDS ORDERED: Fentanyl 100 MCG/2 ML VIAL ONE (07:37)
[2019-06-15] MEDS ORDERED: Famotidine/PF 20 mg/2ml Vial ONE (07:37)
[2019-06-15] MEDS ORDERED: PACU-Morphine 4MG/ML VIAL SLOW IVP PRN (08:55)
[2019-06-15] MEDS ORDERED: Meperidine HCl/PF 25 MG/ML VIAL SLOW IVP PRN (08:55)
[2019-06-15] MEDS ORDERED: Promethazine HCl 25 MG/ML VIAL SLOW IVP PRN (08:55)
[2019-06-15] MEDS ORDERED: Promethazine HCl 25 MG/ML VIAL IM PRN ×2 (08:55→10:24)
[2019-06-15] MEDS: Amlodipine 5 MG TAB PO SCH (09:16)
[2019-06-15] MEDS: Famotidine/PF 20 mg/2ml Vial SLOW IVP SCH (09:16)
[2019-06-15] MEDS ORDERED: SUGAMMADEX SODIUM 200 MG/2 ML VIAL ONE (09:30)
--- NOTE | 2019-06-15 10:22 | OP ---
DATE OF PROCEDURE: 06/15/2019 PREOPERATIVE DIAGNOSIS: Symptomatic gallstones with history of choledocholithiasis. POSTOPERATIVE DIAGNOSIS: Symptomatic gallstones with history of choledocholithiasis. PROCEDURE PERFORMED: Laparoscopic cholecystectomy. ANESTHESIA: General. SPECIMEN: None. COMPLICATIONS: None. DESCRIPTION OF PROCEDURE: The patient was taken to the operating room and laid supine on the operating room table. After general anesthetic was obtained, the abdomen was prepped and draped in a sterile fashion. A straight incision made above the umbilicus. Cautery dissected down to and scored the fascia. Abdominal cavity was entered bluntly using a Janie clamp. Holding stitch of PDS was placed on each side of the fascia. Ruben trocar was placed. High-flow pneumoperitoneum was obtained. Upper midline 5 mm port, 2 right upper quadrant 5 mm ports were placed under direct visualization. The patient was placed in reverse Trendelenburg position. The gallbladder was retracted up over the liver. The peritoneum of the gallbladder was opened anteriorly and posteriorly. The critical view triangle was seen showing only the cystic artery and cystic duct branching medial to lateral and no other branching structures. Two clips were placed proximally and one distally and the cystic artery was cut using laparoscopic scissors. The cystic duct was enlarged and too large for normal clips. A clip was placed high on it. It was cut just proximal to that. A PDS Endoloop was brought in and used to ligate the more proximal cystic duct. The gallbladder was dissected out of the gallbladder fossa using cautery. There were local inflammatory changes consistent with chronic cholecystitis. Meticulous hemostasis was obtained in the liver bed. The gallbladder was placed in an EndoCatch bag and brought out through the Ruben. All port sites were infiltrated using local anesthetic. Jonathan antibleeding starch was placed in the liver bed. All ports were removed under camera visualization. Pneumoperitoneum was let down. The patient was sent to Recovery in stable condition. All instrument counts, needle counts, lap counts are correct. Job ID: [id number]
[2019-06-15] MEDS ORDERED: Ondansetron PF 4 MG/2 ML Vial IVP PRN (10:24)
[2019-06-15] MEDS ORDERED: Dextrose 5% in Water 1,000 ML IV PRN (10:24)
[2019-06-15] MEDS ORDERED: Calcium Carbonate 500 MG ChewTAB PO PRN (10:24)
[2019-06-15] MEDS ORDERED: Mag-Al 1200 mg/1200 mg/30 ML UDCUP PO PRN (10:24)
[2019-06-15] MEDS ORDERED: hydrALAZINE 20 MG/ML VIAL SLOW IVP PRN (10:24)
[2019-06-15] MEDS ORDERED: Acetaminophen 325 MG TAB PO PRN (10:24)
[2019-06-15] MEDS ORDERED: Dextrose 50% Abboject 50 ML SYRINGE SLOW IVP PRN (10:24)
[2019-06-15] MEDS ORDERED: Ketorolac Tromethamine 30 MG/ML VIAL ONE (10:39)
[2019-06-15] MEDS ORDERED: Lidocaine 1% PF 5 ML VIAL ONE (10:39)
[2019-06-15] MEDS ORDERED: PROPOFOL 200 MG/20 ML VIAL ONE (10:39)
[2019-06-15] MEDS ORDERED: Ondansetron PF 4 MG/2 ML Vial ONE (10:39)
[2019-06-15] MEDS ORDERED: Glycopyrrolate 0.2 MG/ML 5 ML SYRINGE ONE (10:39)
[2019-06-15] MEDS ORDERED: Rocuronium Bromide 10 MG/ML (10ML VIAL) ONE (10:39)
[2019-06-15] MEDS ORDERED: Dexamethasone 20 MG/5 ML VIAL ONE (10:39)
[2019-06-15] MEDS ORDERED: Morphine 2 MG/ML SYRINGE SLOW IVP PRN (10:53)
[2019-06-15] MEDS: Sodium Chloride 0.9% 1,000 ML IV SCH (10:57)
[2019-06-15] MEDS: HYDROcodone/Acetaminophen 7.5/325 mg Tablet PO PRN ×2 (12:34→19:47)
--- NOTE | 2019-06-15 13:20 | PRG ---
DATE OF SERVICE: 06/15/2019 SUBJECTIVE: Mr. Interiano did well overnight and underwent uncomplicated laparoscopic cholecystectomy this morning with Dr. Lopez. He is feeling okay. Currently, minimal nausea, some abdominal discomfort on the right side, but he already tolerated lunch just fine. He has no other complaints. OBJECTIVE: VITAL SIGNS: Temperature 97.6, pulse 76, blood pressure 120/75, and 94% oxygen saturation on room air. GENERAL: No acute distress. HEART: Regular rate and rhythm. LUNGS: Clear to auscultation bilaterally. ABDOMEN: Mild distention, tympanitic postoperatively. Incisions look good. Bowel sounds are present. Some mild generalized tenderness to palpation, but no rebound tenderness. EXTREMITIES: No peripheral edema. LABORATORY STUDIES: WBC 4.8, hemoglobin 11.4, and platelets 170. Sodium 134, potassium 3.4, BUN 19, creatinine 1.17, total bilirubin down to 2.0, direct bilirubin 1.6, alkaline phosphatase down to 231, AST down to 180, ALT down to 350, lipase less than 4. ASSESSMENT AND PLAN: 1. Choledocholithiasis with cholelithiasis, now status post successful endoscopic retrograde cholangiopancreatography with sphincterotomy and stone extraction yesterday, and cholecystectomy earlier today. 2. Elevated LFTs, improving following endoscopic retrograde cholangiopancreatography. 3. Ampullary mass. 4. Pancreatic ductal dilation. Ampullary masses demonstrated on endoscopic retrograde cholangiopancreatography yesterday. Biopsies are still pending. 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 We will follow up on the ampullary biopsies with the patient next week when results are available, on an outpatient basis. Really regardless of results, we are going to plan to send the patient for upper endoscopic ultrasound examination given these findings. The patient would prefer to have this done at [facility] in [place] if possible. We will have my office make arrangements for this on an outpatient basis. 5. Diet advancement and disposition per Surgical Service. Please call back anytime if GI can be of further assistance this hospitalization. Job ID: [id number]
[2019-06-15] MEDS: Morphine 4 MG/ML VIAL SLOW IVP PRN (17:01)
--- NOTE | 2019-06-15 18:51 | PDOC.HOSPP ---
- Subjective Encounter Date: 06/15/19 Encounter Time: 15:00 Subjective: Pt seen for followup re; acute cholecystitis. Feels well, abdo pain is better. - Objective Vital Signs & Weight: Vital Signs (12 hours) Temp Pulse Resp BP Pulse Ox 06/15/19 15:31 97.7 F 72 16 111/64 98 06/15/19 12:35 94 L 06/15/19 12:28 97.6 F 76 20 120/75 94 L 06/15/19 10:15 97.2 F L 74 18 120/71 100 Weight Weight 191 lb 4 oz I&O: 06/14/19 06/15/19 06/16/19 06:59 06:59 06:59 Intake Total 600 2810 1620 Output Total 800 350 Balance 600 2009 1270 Result Diagrams: 06/15/19 04:10 06/15/19 04:10 Additional Labs: Labs and MARs reviewed by pr Hospitalist ROS - Review of Systems Gastrointestinal: reports: abdominal pain. denies: nausea, vomiting, diarrhea, constipation, melena, hematochezia Genitourinary: denies: dysuria, frequency, incontinence, hematuria, retention - Medication Medications: Active Medications Generic Name Dose Route Start Last Admin Trade Name Freq PRN Reason Stop Dose Admin Hydrocodone Bitart/Acetaminophen 1 tab 06/15/19 10:24 06/15/19 12:34 [place]row 7.5/325 PO 1 tab Q6H PRN Administration Mild Pain (1-3) Amlodipine Besylate 5 mg 06/15/19 09:00 06/15/19 09:16 Norvasc PO Not Given DAILY JUANITA Diphenhydramine HCl 25 mg 06/14/19 22:10 06/14/19 22:42 Benadryl IVP 25 mg Q6H PRN Administration Itching Sodium Chloride 1,000 mls @ 70 mls/hr 06/15/19 10:24 06/15/19 10:57 Normal Saline 0.9% IV 1,000 mls .[id number] JUANITA Administration Morphine Sulfate 4 mg 06/15/19 10:24 06/15/19 17:01 Morphine SLOW IVP 4 mg Q2H PRN Administration Moderate Pain (4-6) Tamsulosin HCl 0.4 mg 06/14/19 21:00 06/14/19 22:00 Flomax PO 0.4 mg HS JUANITA Administration - Exam General Appearance: NAD Eye: anicteric sclera ENT: moist mucosa Neck: supple Heart: RRR Respiratory: CTAB, no rales Gastrointestinal: soft, non-tender Extremities: no clubbing Musculoskeletal: normal tone, normal strength Psychiatric: normal affect, normal behavior Hosp A/P (1) Acute cholecystitis Code(s): K81.0 - ACUTE CHOLECYSTITIS Status: Acute (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 s/p cholecystectomy. Mobilize patient. HTN controlled.
[2019-06-15] MEDS: Tamsulosin HCl 0.4 MG CAP PO SCH (19:48)
[2019-06-16] MEDS: Sodium Chloride 0.9% 1,000 ML IV SCH (00:05)
[2019-06-16] MEDS: Morphine 4 MG/ML VIAL SLOW IVP PRN (00:26)
[2019-06-16] MEDS: Amlodipine 5 MG TAB PO SCH (09:10)
--- NOTE | 2019-06-16 10:41 | PRG ---
DATE OF SERVICE: 06/16/2019 SUBJECTIVE: Mr. Interiano is postoperative day 1, laparoscopic cholecystectomy. He had ERCP the day before. He is doing well. He is tolerating diet. He is not able to void. He has a Brooks catheter. OBJECTIVE: ABDOMEN: Soft and nontender. Wounds are healing well. PLAN: Plan is for him to be discharged home to return on Monday to my office for catheter removal. I have already sent over prescription for Flomax to be taken daily to his pharmacy there in [place]. The family has my phone number with any questions. Job ID: [id number]
[2019-06-16 11:41] VITALS: BP 132/72; TEMP 98.1
[2019-06-16] MEDS ORDERED: Potassium Chloride 20 MEQ TAB PO SCH (11:45)
--- NOTE | 2019-06-16 12:42 | DIS ---
DATE OF ADMISSION: 06/14/2019 DATE OF DISCHARGE: 06/16/2019 PRIMARY CARE PROVIDER: Janie Birch MD DISCHARGE DIAGNOSES: 1. Acute cholecystitis. 2. 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 3. Abnormal LFTs. 4. Hyponatremia secondary to dehydration. 5. Hypokalemia. 6. Mass of ampulla of Vater. CONDITION: Condition of the patient on the day of discharge: Stable. I assessed Mr. Interiano on the day of discharge. He denies any chest pain or shortness of breath. Vital signs are stable. S1 and S2 are heard, regular. Lungs are clear to auscultation bilaterally. CONSULTATIONS DURING THIS HOSPITALIZATION: Gastroenterology, Dr. Fontanez; and General Surgery, Dr. Lopez. DISCHARGE MEDICATIONS: 1. Amlodipine 5 mg daily. 2. Multivitamins 1 tablet daily. 3. Flomax 0.4 mg at bedtime. 4. Aspirin 325 mg daily. 5. Newberg p.r.n. The patient has been advised to stop Zetia and atorvastatin until his liver function tests are close to normal. He is advised to have his LFTs checked through his primary care provider. FOLLOWUP APPOINTMENTS: The patient is advised to follow up with primary care provider in 1 weeks' time, with general surgeon in 5 days time and with vamp stitcher in 1 weeks' time. HOSPITAL COURSE: Mr. Intreiano is a pleasant 78-year-old gentleman, who was admitted to [facility] on June 14 for acute choledocholithiasis and acute cholecystitis. Please refer to Dr. Meadows's history and physical note dated June 14, 2019 for further details. He was seen by Gastroenterology Service and underwent ERCP on June 14, 2019. He was found to have a prominent ampulla, masslike in appearance. Multiple biopsies were obtained. He also had common bile duct dilatation. He had copious common bile duct sludge. He had biliary sphincterotomy and sludge extraction with balloon sweep and irrigation. He was seen by General Surgery Service for a cholecystectomy. On June 15, he underwent laparoscopic cholecystectomy. On June 15, he had sodium of 134, potassium 3.4, creatinine 1.17, total bilirubin 2.0, direct bilirubin 1.6, AST 180, ALT 350, and alkaline phosphatase 231. He is being discharged with Brooks catheter in place. General Surgery Service will follow up on him in Monday as outpatient, that is in 5 days time and will remove the Brooks catheter. The patient is also advised to follow up with Gastroenterology Service for biopsy results. Many thanks for allowing me to participate in your patient's care. Please feel free to contact me with any questions or concerns. DISCHARGE DESTINATION: Home. TIME SPENT: Total amount of time spent coordinating this discharge: 32 minutes. Job ID: [id number]
== END 2019-06-16 13:23 | disposition home or self-care (01) | DRG 418 ==
LOC: ERS 22:23 → SURG A 06-14 01:44
PROVIDERS: ADMIT Hospitalist; ATTEND Hospitalist
PROC: 0FC98ZZ Extirpation of Matter from Common Bile Duct, Via Natural or Artificial Opening Endoscopic (ICD-10-PCS; 2019-06-14)
PROC: 0FBC8ZX Excision of Ampulla of Vater, Via Natural or Artificial Opening Endoscopic, Diagnostic (ICD-10-PCS; 2019-06-14)
PROC: BF111ZZ Fluoroscopy of Biliary and Pancreatic Ducts using Low Osmolar Contrast (ICD-10-PCS; 2019-06-14)
PROC: 0FT44ZZ Resection of Gallbladder, Percutaneous Endoscopic Approach (ICD-10-PCS; principal; 2019-06-15)
DX: K80.62 Calculus of gallbladder and bile duct with acute cholecystitis without obstruction (principal); N17.9 Acute kidney failure, unspecified; E87.1 Hypo-osmolality and hyponatremia; N40.0 Benign prostatic hyperplasia without lower urinary tract symptoms; M19.90 Unspecified osteoarthritis, unspecified site; I12.9 Hypertensive chronic kidney disease with stage 1 through stage 4 chronic kidney disease, or unspecified chronic kidney disease; N18.2 Chronic kidney disease, stage 2 (mild); D63.1 Anemia in chronic kidney disease; E86.0 Dehydration; E78.5 Hyperlipidemia, unspecified; K83.8 Other specified diseases of biliary tract; E87.6 Hypokalemia; Z79.82 Long term (current) use of aspirin; Z95.3 Presence of xenogenic heart valve
CPT/HCPCS: 36415; 36416; 74177; 74330; 80048; 80053; 80074; 80076; 80307; 81003; 81015; 82140; 82550; 83605; 83690; 85025; 85610; 85730; 87086; 88304; 88305; 90471; 90662; 96365; G0008; J0131; J1100; J1200; J1885; J2001; J2250; J2270; J2405; J2543; J2704; J3010; J3490; Q9966; S0028

== ENCOUNTER 2019-12-05 06:03 | Day surgery (SDC) | payer BC, MEDICARE ==
[2019-12-04 08:52] VITALS: BMI 24.3
[2019-12-05 06:51] LABS: #Eosinphils 0.2 thou/uL (0.0-0.7); #Lymphocytes 1.1 thou/uL (1.20-3.40); #Monocytes 0.4 thou/uL (0.11-0.59); #Neutrophils 4.3 thou/uL (1.40-6.50); %Eosinophils 3.6 % (0.0-10.0); %Lymphocytes 17.7 % (21.0-51.0); %Monocytes 6.9 % (0.0-10.0); %Neutrophils 71.7 % (42.0-75.0); Hemoglobin 12.5 g/dL (14.0-18.0); Mean Corpuscular HGB CONC 34.3 g/dL (32.0-36.0); Mean Corpuscular Volume 99.1 fL (78.0-98.0); Mean Platelet Volume 9.6 fL (7.4-10.4); Platelet Count 145 thou/uL (130-400); RBC Distribution Width 12.6 % (11.5-14.5); Red Blood Cell (RBC) Count 3.67 mill/uL (4.70-6.10)
[2019-12-05] MEDS ORDERED: Lidocaine 1% w/Epinephrine 1:100K 20 ML VIAL ONE (06:52)
[2019-12-05] MEDS ORDERED: Bupivacaine 0.25% HCL 30 ML VIAL ONE (06:52)
[2019-12-05] MEDS ORDERED: Fentanyl 100 MCG/2 ML VIAL ONE (06:53)
[2019-12-05] MEDS ORDERED: PROPOFOL 60 ML ONE (06:53)
[2019-12-05 07:07] LABS: Anion Gap 12 mmol/L (10-20); BUN (Urea Nitrogen) 11 mg/dL (8.4-25.7); Calc. Creatinine Clearance 93 mL/min (70-130); Calcium 8.7 mg/dL (7.8-10.44); Carbon Dioxide 23 mmol/L (23-31); Chloride 110 mmol/L (98-107); Estimated GFR-MDRD Greater than 90; Glucose 95 mg/dL (83-110); Potassium 3.4 mmol/L (3.5-5.1); Sodium 142 mmol/L (136-145)
[2019-12-05] MEDS ORDERED: Lidocaine 1% PF 5 ML VIAL ONE (07:35)
[2019-12-05] MEDS ORDERED: PROPOFOL 200 MG/20 ML VIAL ONE (07:35)
--- NOTE | 2019-12-05 08:29 | RAD ---
Exam: Chest one view HISTORY:Status post Mediport placement Comparison: 06/22/2018, 08/14/2018 FINDINGS: Lines and tubes: Redemonstration of sternotomy wires. Right-sided Mediport catheter with the distal t ip projecting over the expected region of the superior vena cava. Cardiac silhouette:Mild enlarged cardiac silhouette Aorta: Atherosclerosis Pulmonary vessels: Normal Costophrenic angles: Clear LUNGS: Focal interstitial and alveolar opacities in the lung bases. Pneumothorax: None Osseous abnormalities: None IMPRESSION: 1. Bibasilar interstitial and alveolar opacities, left greater than right 2. Atherosclerosis 3. Mild cardiomegaly 4. Right-sided Mediport catheter with the distal tip projecting over the expected region of the super ior vena cava. No pneumothorax.
--- NOTE | 2019-12-05 10:20 | OP ---
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 PROCEDURE PERFORMED: Tunneled central line subcutaneous port (MediPort CT injectable). ANESTHESIA: General. ESTIMATED BLOOD LOSS: Minimal. COMPLICATIONS: None. SPECIMEN: None. FINDINGS: Tip of the catheter was at the atriocaval junction . DESCRIPTION OF PROCEDURE: The patient was taken to the operating room and laid supine on the operating room table. After general anesthetic was obtained, bilateral neck and chest was prepped and draped in a sterile fashion. Local anesthetic infiltrated over the right internal jugular vein. Internal jugular vein cannulated using a 22-gauge finder needle followed by a Seldinger needle. Wire was passed into superior vena cava under fluoro guidance. A small maninder was made at the wire entrance site. A separate 3 cm incision made in the right upper chest. Subcutaneous pocket was made below the lower incision, tubing for the MediPort tunneled from inferior to superior incision. An introducer sheath was placed over the wire into superior vena cava under fluoro guidance. The dilator and wire were removed from the sheath and the catheter sewed into the sheath. The sheath was peeled away. The tip of the catheter was at the atriocaval junction. Tubing for the MediPort cut to fit the MediPort at the lower incision. The MediPort sewn to the chest wall in a subcutaneous pocket using Prolene. The MediPort was flushed and cynthia blood without difficulty, it was flushed with a heparin flush. The wounds were irrigated and closed using 3-0 Vicryl, 4-0 Monocryl, and Dermabond. The patient was sent to Recovery in stable condition. All instrument counts, needle counts, and lap counts were correct. Job ID: [id number]
--- NOTE | 2019-12-05 20:59 | EKG ---
Test Reason : PREOP Blood Pressure : / mmHG Vent. Rate : 074 BPM Atrial Rate : 074 BPM P-R Int : 164 ms QRS Dur : 094 ms QT Int : 428 ms P-R-T Axes : 043 028 049 degrees QTc Int : 475 ms Sinus rhythm with occasional Premature ventricular complexes RSR' or QR pattern in V1 suggests right ventricular conduction delay Borderline ECG When compared with ECG of 21-JUN-2018 10:18, Premature ventricular complexes are now Present Vent. rate has decreased BY [address] no longer depressed in Anterolateral leads Nonspecific T wave abnormality no longer evident in Lateral leads Confirmed by Halle SHI ([id number]) on 12/05/2019 8:58:56 PM Referred By: IVONNE Confirmed By:Halle SHI
== END 2019-12-05 09:05 | disposition home or self-care (01) ==
LOC: SDC 06:03
PROVIDERS: ATTEND Surgery
PROC: 02HV33Z Insertion of Infusion Device into Superior Vena Cava, Percutaneous Approach (ICD-10-PCS; principal; 2019-12-05)
DX: C24.1 Malignant neoplasm of ampulla of Vater (principal); Z79.899 Other long term (current) drug therapy; Z88.5 Allergy status to narcotic agent; Z88.6 Allergy status to analgesic agent
CPT/HCPCS: 71045; 80048; 85025; 93005; 93010; C1788; J0690; J1642; J2001; J2704; J3010; S0020

== ENCOUNTER 2020-06-10 09:32 | Outpatient (CLI) | payer BC, MEDICARE ==
[~2020-06-10 09:32] MED LIST changes: -ISOVUE-370 76%-LOCM 1 ML ONE; +Iopamidol-370 76% 500 ML 1 ML ONE
--- NOTE | 2020-06-10 11:24 | CT ---
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 COMPARISON: 06/13/2019 Technique: Multiple contiguous axial CT images are obtained through the abdomen and pelvis with IV contrast. Cor onal reformatted images are provided. FINDINGS: Lower Chest: Postoperative changes related to median sternotomy and aortic valve replacement are note d. There is atelectasis present at each lung base. Vessels: Vascular calcifications are seen in the abdominal aorta and iliac arteries. Abdomen: Portal vein:Patent Gallbladder: Surgically absent related to prior Whipple procedure. Liver: Previously seen intrahepatic biliary ductal dilatation has resolved. Punctate focus of gas is seen in a left hepatic duct. No focal hepatic lesion is identified. Spleen: within normal limits. Pancreas: Evidence of prior Whipple procedure. Remaining body and tail of pancreas demonstrate a norm al CT appearance. Previously seen pancreatic duct dilatation has resolved. Adrenals: within normal limits. Kidneys: Right renal cyst is again seen. Kidneys otherwise have a normal CT appearance. Bowel: Postoperative changes loops of bowel in the upper abdomen are seen related to prior Whipple pr ocedure. There is colonic diverticulosis. There is mild bowel wall thickening seen involving the mid and distal transverse colon. Findings are worrisome for colitis which could be related to posttre atment change. Loops of small bowel are normal in caliber. Appendix: The appendix is visualized and normal in caliber. Peritoneum: There is minimal inflammatory stranding seen in the central mesentery with is overall non specific. No mass or enlarged lymph nodes are seen, and there is no fluid in this region. Trace amount of free fluid is seen in the lower pelvis. Mesentery and Retroperitoneum: No enlarged mesenteric or retroperitoneal lymph nodes. Abdominal Wall: Midline postoperative scarring Pelvis: Reproductive Organs: No pelvic masses. Bladder: Incompletely distended. Bones: Degenerative changes are seen in the spine. No suspicious lytic or sclerotic osseous lesions a re identified. IMPRESSION: 1. Postoperative changes related to Whipple procedure. Previously seen intrahepatic biliary ductal di latation and pancreatic ductal dilatation have resolved. 2. Thickening involving the byrne of the transverse colon suggesting colitis which could be secondary to posttreatment change. 3. Trace free fluid in the pelvis. 4. No evidence of lymphadenopathy. 5. Additional findings as described above.
== END 2020-06-10 09:33 | disposition home or self-care (01) ==
LOC: BICCT 09:32
PROVIDERS: ATTEND Internal Medicine Hematology & Oncology
DX: C24.1 Malignant neoplasm of ampulla of Vater (principal); K63.89 Other specified diseases of intestine; Z98.890 Other specified postprocedural states
CPT/HCPCS: 74177; Q9967

== ENCOUNTER 2020-12-08 10:01 | Outpatient (CLI) | payer MEDICARE, OTHER ==
[2020-12-08 10:38] LABS: Estimated GFR-MDRD - POC Greater than 90
== END 2020-12-08 10:02 | disposition home or self-care (01) ==
LOC: BICCT 10:01
PROVIDERS: ATTEND Internal Medicine Hematology & Oncology
DX: C24.1 Malignant neoplasm of ampulla of Vater (principal)
CPT/HCPCS: 74177; 82565

== ENCOUNTER 2021-02-22 09:41 | Outpatient (CLI) | payer MEDICARE, OTHER ==
[2021-02-22] MEDS ORDERED: Iopamidol 370 76% 100 ML VIAL ONE (13:46)
== END 2021-02-22 09:42 | disposition home or self-care (01) ==
LOC: CT 09:41
PROVIDERS: ATTEND Internal Medicine Hematology & Oncology
DX: C24.1 Malignant neoplasm of ampulla of Vater (principal); R91.1 Solitary pulmonary nodule; Z98.890 Other specified postprocedural states; N28.1 Cyst of kidney, acquired; K57.30 Diverticulosis of large intestine without perforation or abscess without bleeding
CPT/HCPCS: 71260; 74177; Q9967

== ENCOUNTER 2021-05-05 08:39 | Outpatient (CLI) | payer MEDICARE | END 2021-05-05 08:40 | disposition home or self-care (01) | LOC: CT 08:39 | PROVIDERS: ATTEND Internal Medicine Hematology & Oncology | DX: C24.1 Malignant neoplasm of ampulla of Vater (principal); N40.0 Benign prostatic hyperplasia without lower urinary tract symptoms; N32.89 Other specified disorders of bladder | CPT/HCPCS: 74177; 80053; 86301 ==

== ENCOUNTER 2021-07-05 08:59 | Outpatient (CLI) | payer MEDICARE, OTHER ==
[2021-07-05] MEDS ORDERED: Iopamidol-370 76% 500 ML 1 ML ONE (09:27)
[2021-07-05 09:34] LABS: Estimated GFR-MDRD - POC Greater than 90
== END 2021-07-05 09:00 | disposition home or self-care (01) ==
LOC: BICCT 08:59
PROVIDERS: ATTEND Internal Medicine Hematology & Oncology
DX: C24.1 Malignant neoplasm of ampulla of Vater (principal); R91.1 Solitary pulmonary nodule; R59.0 Localized enlarged lymph nodes; K57.30 Diverticulosis of large intestine without perforation or abscess without bleeding; N28.1 Cyst of kidney, acquired; Z98.890 Other specified postprocedural states
CPT/HCPCS: 36415; 71260; 74177; 80053; 82565; 86301; Q9967

== ENCOUNTER 2021-07-16 08:01 | Outpatient (CLI) | payer MEDICARE, OTHER | END 2021-07-16 08:02 | disposition home or self-care (01) | LOC: PET 08:01 | PROVIDERS: ATTEND Internal Medicine Hematology & Oncology | DX: C24.1 Malignant neoplasm of ampulla of Vater (principal) | CPT/HCPCS: 78815; A9552 ==

== ENCOUNTER 2021-10-13 09:20 | Outpatient (CLI) | payer MEDICARE, OTHER ==
[2021-10-13 10:19] LABS: Estimated GFR-MDRD - POC Greater than 90
== END 2021-10-13 09:21 | disposition home or self-care (01) ==
LOC: CT 09:20
PROVIDERS: ATTEND Internal Medicine Hematology & Oncology
DX: C24.1 Malignant neoplasm of ampulla of Vater (principal); R91.1 Solitary pulmonary nodule; R59.9 Enlarged lymph nodes, unspecified; K57.30 Diverticulosis of large intestine without perforation or abscess without bleeding; K59.00 Constipation, unspecified; J98.11 Atelectasis; I51.7 Cardiomegaly; I25.10 Atherosclerotic heart disease of native coronary artery without angina pectoris; I70.0 Atherosclerosis of aorta; Z98.890 Other specified postprocedural states; Z95.2 Presence of prosthetic heart valve; Z90.49 Acquired absence of other specified parts of digestive tract
CPT/HCPCS: 36415; 71260; 74177; 80053; 82565; 82728

== ENCOUNTER 2021-12-30 09:51 | Outpatient (CLI) | payer MEDICARE, OTHER ==
[2021-12-30 10:20] LABS: Estimated GFR-MDRD - POC Greater than 90
[2021-12-30] MEDS ORDERED: Iopamidol-370 76% 500 ML 1 ML ONE (14:30)
== END 2021-12-30 09:52 | disposition home or self-care (01) ==
LOC: BICCT 09:51
PROVIDERS: ATTEND Internal Medicine Hematology & Oncology
DX: C24.1 Malignant neoplasm of ampulla of Vater (principal); R91.1 Solitary pulmonary nodule; Z98.890 Other specified postprocedural states
CPT/HCPCS: 71260; 74177; 82565; Q9967

== ENCOUNTER 2022-06-27 10:01 | Outpatient (CLI) | payer MEDICARE, OTHER ==
[2022-06-27] MEDS ORDERED: Iopamidol-370 76% 500 ML 1 ML ONE (14:31)
== END 2022-06-27 10:02 | disposition home or self-care (01) ==
LOC: BICCT 10:01
PROVIDERS: ATTEND Internal Medicine Hematology & Oncology
DX: C24.1 Malignant neoplasm of ampulla of Vater (principal); K43.9 Ventral hernia without obstruction or gangrene; K57.30 Diverticulosis of large intestine without perforation or abscess without bleeding; Z98.890 Other specified postprocedural states
CPT/HCPCS: 71260; 74177; 82565; Q9967

== ENCOUNTER 2022-09-26 09:52 | Outpatient (CLI) | payer MEDICARE, OTHER | END 2022-09-26 09:53 | disposition home or self-care (01) | LOC: BICCT 09:52 | PROVIDERS: ATTEND Internal Medicine Hematology & Oncology | DX: C24.1 Malignant neoplasm of ampulla of Vater (principal); R91.8 Other nonspecific abnormal finding of lung field; N28.9 Disorder of kidney and ureter, unspecified; K57.30 Diverticulosis of large intestine without perforation or abscess without bleeding; R91.1 Solitary pulmonary nodule; K43.9 Ventral hernia without obstruction or gangrene; N32.89 Other specified disorders of bladder; Z98.890 Other specified postprocedural states | CPT/HCPCS: 71260; 74177; Q9967 ==

== ENCOUNTER 2022-10-14 09:01 | Outpatient (CLI) | payer MEDICARE, OTHER | END 2022-10-14 09:02 | disposition home or self-care (01) | LOC: TBSIIMAG 09:01 | PROVIDERS: ATTEND Family Medicine | DX: M47.26 Other spondylosis with radiculopathy, lumbar region (principal); M48.062 Spinal stenosis, lumbar region with neurogenic claudication; M47.814 Spondylosis without myelopathy or radiculopathy, thoracic region; M51.35 Other intervertebral disc degeneration, thoracolumbar region; M25.78 Osteophyte, vertebrae; M51.16 Intervertebral disc disorders with radiculopathy, lumbar region; M47.817 Spondylosis without myelopathy or radiculopathy, lumbosacral region; M51.17 Intervertebral disc disorders with radiculopathy, lumbosacral region; M48.07 Spinal stenosis, lumbosacral region | CPT/HCPCS: 72148 ==

== ENCOUNTER 2022-10-25 10:06 | Outpatient (CLI) | payer MEDICARE, OTHER | END 2022-10-25 10:07 | disposition home or self-care (01) | LOC: BICCT 10:06 | PROVIDERS: ATTEND Internal Medicine Hematology & Oncology | DX: C24.1 Malignant neoplasm of ampulla of Vater (principal); R97.8 Other abnormal tumor markers; R59.9 Enlarged lymph nodes, unspecified; R91.8 Other nonspecific abnormal finding of lung field; J90 Pleural effusion, not elsewhere classified; I25.10 Atherosclerotic heart disease of native coronary artery without angina pectoris; Z98.890 Other specified postprocedural states | CPT/HCPCS: 71260; 74177; 85025; Q9967 ==

== ENCOUNTER 2022-12-19 09:47 | Outpatient (CLI) | payer MEDICARE, OTHER ==
[2022-12-19] MEDS ORDERED: Iopamidol 370 76% 100 ML VIAL ONE (09:53)
== END 2022-12-19 09:48 | disposition home or self-care (01) ==
LOC: CT 09:47
PROVIDERS: ATTEND Family Medicine
DX: M47.26 Other spondylosis with radiculopathy, lumbar region (principal); M79.18 Myalgia, other site; M51.16 Intervertebral disc disorders with radiculopathy, lumbar region; M89.38 Hypertrophy of bone, other site; M51.37 Other intervertebral disc degeneration, lumbosacral region; R59.0 Localized enlarged lymph nodes
CPT/HCPCS: 72132; 82565; Q9967

== ENCOUNTER 2022-12-29 11:02 | Outpatient (CLI) | payer MEDICARE, OTHER | END 2022-12-29 11:03 | disposition home or self-care (01) | LOC: BICCT 11:02 | PROVIDERS: ATTEND Internal Medicine Hematology & Oncology | DX: C24.1 Malignant neoplasm of ampulla of Vater (principal); Z98.890 Other specified postprocedural states; K43.9 Ventral hernia without obstruction or gangrene | CPT/HCPCS: 74177 ==

== ENCOUNTER 2023-01-11 10:32 | Outpatient (CLI) | payer MEDICARE, OTHER | END 2023-01-11 10:33 | disposition home or self-care (01) | LOC: NM 10:32 | PROVIDERS: ATTEND Internal Medicine Hematology & Oncology | DX: C24.1 Malignant neoplasm of ampulla of Vater (principal); M54.14 Radiculopathy, thoracic region | CPT/HCPCS: 78306; A9503 ==

== ENCOUNTER 2023-04-21 08:28 | Outpatient (CLI) | payer MEDICARE, OTHER ==
[2023-04-21] MEDS ORDERED: Iopamidol 370 76% 100 ML VIAL ONE (13:56)
== END 2023-04-21 08:29 | disposition home or self-care (01) ==
LOC: CT 08:28
PROVIDERS: ATTEND Internal Medicine Hematology & Oncology
DX: C24.1 Malignant neoplasm of ampulla of Vater (principal); K76.9 Liver disease, unspecified; R59.9 Enlarged lymph nodes, unspecified; C79.9 Secondary malignant neoplasm of unspecified site
CPT/HCPCS: 74177; 78306; 86301; A9503; 36415; Q9967

== ENCOUNTER 2023-06-29 08:44 | Outpatient (CLI) | payer MEDICARE, OTHER | END 2023-06-29 08:45 | disposition home or self-care (01) | LOC: CT 08:44 | PROVIDERS: ATTEND Internal Medicine Hematology & Oncology | DX: C24.1 Malignant neoplasm of ampulla of Vater (principal); R18.8 Other ascites | CPT/HCPCS: 74177; 82565 ==

== ENCOUNTER 2023-08-12 08:27 | Emergency (ER) | payer MEDICARE, OTHER ==
[2023-08-12 09:21] LABS: #Eosinphils 0.2 thou/uL (0.0-0.7); #Monocytes 0.1 thou/uL (0.11-0.59); #Neutrophils 5.2 thou/uL (1.40-6.50); %Basophils 0.2 % (0.0-1.0); %Eosinophils 3.6 % (0.0-10.0); %Lymphocytes 5.8 % (21.0-51.0); %Monocytes 1.9 % (0.0-10.0); %Neutrophils 88.2 % (42.0-75.0); Hematocrit 31.5 % (42.0-52.0); Hemoglobin 9.8 g/dL (14.0-18.0); Mean Corpuscular HGB CONC 31.1 g/dL (32.0-36.0); Mean Corpuscular Volume 102.9 fl (78.0-98.0); Mean Platelet Volume 10.2 fL (7.4-10.4); Platelet Count 184 10x3/uL (130-400); Red Blood Cell (RBC) Count 3.06 mill/uL (4.70-6.10); White Blood Cell (WBC) Count 5.9 10x3/uL (4.8-10.8)
[2023-08-12] MEDS ORDERED: Iopamidol-370 76% 500 ML MDV (1 ML CHARGE) ONE (09:24)
[2023-08-12 09:44] LABS: ALT (SGPT) 11 U/L (8-55); AST (SGOT) 25 U/L (5-34); Albumin 3.4 g/dL (3.4-4.8); Alkaline Phosphatase 102 U/L (40-110); Anion Gap 12 mmol/L (10-20); BUN (Urea Nitrogen) 20 mg/dL (8.4-25.7); Bilirubin, Total 1.2 mg/dL (0.2-1.2); Calc. Creatinine Clearance 0 mL/min (70-130); Calcium 8.7 mg/dL (7.8-10.44); Carbon Dioxide 25 mmol/L (23-31); Chloride 104 mmol/L (98-107); Estimated GFR 86; Globulin 3.4 g/dL (2.4-3.5); Glucose 99 mg/dL (83-110); Lipase 8 U/L (8-78); Potassium 4.4 mmol/L (3.5-5.1); Protein, Total 6.8 g/dL (5.8-8.1); Sodium 137 mmol/L (136-145)
[2023-08-12 09:47] LABS: Bacteria/HPF None Seen HPF (None Seen); Bilirubin Negative (Negative); Blood, Urine Negative (Negative); CAUTI Indications for Culture Immunosuppressed; Clarity Clear (Clear); Glucose, Urine (Dipstick) Normal (Negative); Ketone, Urine Negative (Negative); Leukocyte Negative Leu/uL (Negative); Nitrite Negative (Negative); Protein, Urine (Dipstick) 10 mg/dL (Neg-Trace); RBC/HPF 0-3 HPF (0-3); Specific Gravity, Urine 1.022 (1.002-1.036); Squamous Epithelial 0-3 HPF (0-3); Urobilinogen Normal mg/dL (Less than 2); WBC/HPF 0-3 HPF (0-3)
[2023-08-12] MEDS ORDERED: Morphine 4 MG/ML VIAL ONE (10:00)
[2023-08-12] MEDS ORDERED: Ondansetron PF 4 MG/2 ML Vial ONE (10:01)
[2023-08-12] MEDS ORDERED: Ketorolac Tromethamine 30 MG/ML VIAL ONE (10:01)
[2023-08-12 10:04] LABS: Urine Culture Reflex Yes Yes
== END 2023-08-12 11:25 | disposition home or self-care (01) ==
LOC: ERS 08:27
DX: K43.9 Ventral hernia without obstruction or gangrene (principal)
CPT/HCPCS: 71045; 74177; 80053; 81001; 83605; 83690; 85025; 87086; 93005; 96361; 96374; 96375; J1885; J2270; J2405; Q9967

== ENCOUNTER 2023-08-24 09:00 | Day surgery (SDC) | payer MEDICARE, OTHER ==
[~2023-08-24 09:00] MED LIST changes: +Acetaminophen 500 MG TAB PO SCH; +Furosemide 20 MG/2 ML VIAL SLOW IVP SCH; -Iopamidol-370 76% 500 ML 1 ML ONE; +diphenhydrAMINE 25 MG CAP PO SCH
[2023-08-24] MEDS ORDERED: Acetaminophen 500 MG TAB ONE (10:22)
[2023-08-24] MEDS ORDERED: diphenhydrAMINE 25 MG CAP ONE (10:22)
[2023-08-24 16:12] VITALS: BP 148/70; TEMP 98.2
== END 2023-08-24 16:28 | disposition home or self-care (01) ==
LOC: ONC/OP 09:00
PROVIDERS: ATTEND Internal Medicine Hematology & Oncology
DX: D64.9 Anemia, unspecified (principal); D69.6 Thrombocytopenia, unspecified
CPT/HCPCS: 36430; 86850; 86900; 86901; 86920; 96374; P9016; J1940

== ENCOUNTER 2023-09-12 10:28 | Emergency (ER) | payer MEDICARE, OTHER ==
[~2023-09-12 10:28] MED LIST changes: -Acetaminophen 500 MG TAB PO SCH; -Furosemide 20 MG/2 ML VIAL SLOW IVP SCH; +Iopamidol-370 76% 500 ML MDV (1 ML CHARGE) ONE; -diphenhydrAMINE 25 MG CAP PO SCH
[2023-09-12 11:37] LABS: #Basophils 0.1 thou/uL (0.0-0.2); #Eosinphils 0.1 thou/uL (0.0-0.7); #Monocytes 0.1 thou/uL (0.11-0.59); #Neutrophils 12.6 thou/uL (1.40-6.50); %Basophils 0.6 % (0.0-1.0); %Eosinophils 0.5 % (0.0-10.0); %Monocytes 0.4 % (0.0-10.0); %Neutrophils 92.2 % (42.0-75.0); Hematocrit 30.1 % (42.0-52.0); Hemoglobin 9.4 g/dL (14.0-18.0); Mean Corpuscular HGB CONC 31.2 g/dL (32.0-36.0); Mean Corpuscular Hemoglobin 30.8 pg (27.0-31.0); Mean Corpuscular Volume 98.7 fl (78.0-98.0); Mean Platelet Volume 10.9 fL (7.4-10.4); Platelet Count 163 10x3/uL (130-400); RBC Distribution Width 17.4 % (11.5-14.5); Red Blood Cell (RBC) Count 3.05 mill/uL (4.70-6.10); White Blood Cell (WBC) Count 13.7 10x3/uL (4.8-10.8)
[2023-09-12 12:01] LABS: ALT (SGPT) 13 U/L (8-55); AST (SGOT) 27 U/L (5-34); Albumin 3.3 g/dL (3.4-4.8); Alkaline Phosphatase 147 U/L (40-110); Anion Gap 12 mmol/L (10-20); BUN (Urea Nitrogen) 16 mg/dL (8.4-25.7); Bilirubin, Total 1.1 mg/dL (0.2-1.2); Calc. Creatinine Clearance 0 mL/min (70-130); Calcium 8.1 mg/dL (7.8-10.44); Carbon Dioxide 24 mmol/L (23-31); Chloride 106 mmol/L (98-107); Estimated GFR 85; Globulin 3.2 g/dL (2.4-3.5); Glucose 107 mg/dL (83-110); Magnesium 1.8 mg/dL (1.6-2.6); Potassium 3.6 mmol/L (3.5-5.1); Protein, Total 6.5 g/dL (5.8-8.1); Sodium 138 mmol/L (136-145)
[2023-09-12 12:03] LABS: Troponin I 0.018 ng/mL (< 0.028)
[2023-09-12 12:40] LABS: SARS-CoV-2 NAA Rapid Test Not Detected (NotDetected)
[2023-09-12 13:43] LABS: Bacteria/HPF None Seen HPF (None Seen); Bilirubin Negative (Negative); Blood, Urine Negative (Negative); CAUTI Indications for Culture Dysuria,urgency,freq; Clarity Clear (Clear); Glucose, Urine (Dipstick) Normal (Negative); Ketone, Urine Negative (Negative); Leukocyte Negative Leu/uL (Negative); Nitrite Negative (Negative); Protein, Urine (Dipstick) 10 mg/dL (Neg-Trace); RBC/HPF 0-3 HPF (0-3); Specific Gravity, Urine 1.032 (1.002-1.036); Squamous Epithelial None Seen HPF (0-3); Urobilinogen Normal mg/dL (Less than 2); WBC/HPF 0-3 HPF (0-3); pH, Urine 5.5 (5.0-9.0)
[2023-09-12 14:06] LABS: Urine Culture Reflex No No
== END 2023-09-12 14:53 | disposition home or self-care (01) ==
LOC: ERS 10:28
DX: R53.1 Weakness (principal); R18.8 Other ascites; C24.1 Malignant neoplasm of ampulla of Vater; I10 Essential (primary) hypertension
CPT/HCPCS: 0240U; 71045; 74177; 80053; 81001; 83735; 84484; 85025; 86850; 86900; 86901; 87040; 93005; 99285; 36415; Q9967

== ENCOUNTER 2023-10-09 07:45 | Outpatient (CLI) | payer MEDICARE, OTHER ==
[2023-10-09] MEDS ORDERED: Iopamidol 370 76% 100 ML VIAL ONE (08:26)
== END 2023-10-09 07:46 | disposition home or self-care (01) ==
LOC: CT 07:45
PROVIDERS: ATTEND Internal Medicine Hematology & Oncology
DX: C24.1 Malignant neoplasm of ampulla of Vater (principal); D70.8 Other neutropenia; R97.8 Other abnormal tumor markers; K63.89 Other specified diseases of intestine; N28.1 Cyst of kidney, acquired; N20.0 Calculus of kidney; R18.8 Other ascites; R59.9 Enlarged lymph nodes, unspecified
CPT/HCPCS: 71260; 74177

== ENCOUNTER 2023-10-10 13:26 | Inpatient (IN) | payer MEDICARE, OTHER ==
[2023-10-10] MEDS ORDERED: Calcium Carbonate 500 MG ChewTAB PO PRN (16:32)
[2023-10-10] MEDS ORDERED: Senokot S 8.6-50 MG TAB PO PRN (16:32)
[2023-10-10] MEDS ORDERED: Bisacodyl 5 MG TAB PO PRN (16:32)
[2023-10-10] MEDS ORDERED: Acetaminophen 325 MG TAB PO PRN (16:32)
[2023-10-10] MEDS ORDERED: Ondansetron PF 4 MG/2 ML Vial IVP PRN (16:32)
[2023-10-10] MEDS ORDERED: Guaifenesin DM 100-10/5 ML UDCUP PO PRN (16:32)
[2023-10-10] MEDS ORDERED: Diphenoxylate HCl/Atropine Tablet PO PRN (16:40)
[2023-10-10] MEDS ORDERED: Dicyclomine 10 MG CAP PO PRN (16:40)
[2023-10-10] MEDS ORDERED: Furosemide 20 MG (2 mL) VIAL SLOW IVP SCH (16:45)
[2023-10-10 17:35] LABS: #Basophils 0.1 thou/uL (0.0-0.2); #Eosinphils 0.2 thou/uL (0.0-0.7); #Monocytes 1.2 thou/uL (0.11-0.59); #Neutrophils 20.2 thou/uL (1.40-6.50); %Basophils 0.3 % (0.0-1.0); %Eosinophils 0.7 % (0.0-10.0); %Lymphocytes 3.5 % (21.0-51.0); %Monocytes 5.3 % (0.0-10.0); %Neutrophils 88.4 % (42.0-75.0); Hematocrit 28.3 % (42.0-52.0); Manual Diff?? YES; Mean Corpuscular HGB CONC 31.8 g/dL (32.0-36.0); Mean Corpuscular Hemoglobin 31.8 pg (27.0-31.0); Mean Platelet Volume 10.9 fL (7.4-10.4); Platelet Count 208 10x3/uL (130-400); RBC Distribution Width 19.5 % (11.5-14.5); Red Blood Cell (RBC) Count 2.83 mill/uL (4.70-6.10); White Blood Cell (WBC) Count 22.8 10x3/uL (4.8-10.8)
[2023-10-10] MEDS: Doxycycline 100 MG in Sodium Chloride 0.9% 100 ML IVPB SCH (17:42)
[2023-10-10 17:59] LABS: ALT (SGPT) 13 U/L (8-55); AST (SGOT) 25 U/L (5-34); Albumin 2.8 g/dL (3.4-4.8); Alkaline Phosphatase 167 U/L (40-110); Anion Gap 11 mmol/L (10-20); BUN (Urea Nitrogen) 20 mg/dL (8.4-25.7); Bilirubin, Total 0.5 mg/dL (0.2-1.2); Calc. Creatinine Clearance 52 mL/min (70-130); Carbon Dioxide 25 mmol/L (23-31); Chloride 106 mmol/L (98-107); Estimated GFR 54; Globulin 3.1 g/dL (2.4-3.5); Glucose 114 mg/dL (83-110); Potassium 3.4 mmol/L (3.5-5.1); Protein, Total 5.9 g/dL (5.8-8.1); Sodium 139 mmol/L (136-145)
[2023-10-10 18:03] LABS: Troponin I 0.034 ng/mL (< 0.028)
[2023-10-10 18:32] LABS: Anisocytosis SLIGHT = 6-15 cells HPF (0-5); Band 4 % (5-11); Eosinophils 1 % (0-10); Lymphocytes 1 % (21-51); Macrocytosis SLIGHT = 6-15 cells HPF (0-5); Monocytes 6 % (0-10); Neutrophil 88 % (42-75); Platelet Adequacy Comment Platelets Normal; Polychromasia SLIGHT = 2-3 cells HPF (0-2); Total Cell Count 100; Toxic Granulation SLIGHT
[2023-10-10] MEDS ORDERED: Famotidine/PF 20 mg/2ml Vial SLOW IVP SCH (21:00)
[2023-10-10] MEDS: Atorvastatin Calcium 20 MG TAB PO SCH (21:53)
[2023-10-10] MEDS: Aspirin 325 MG TAB PO SCH (21:53)
[2023-10-10] MEDS: Tamsulosin HCl 0.4 MG CAP PO SCH (21:53)
[2023-10-10] MEDS: Propranolol 10 MG TAB PO SCH (21:53)
[2023-10-11] MEDS: Furosemide 20 MG (2 mL) VIAL SLOW IVP SCH ×2 (06:13→14:25)
[2023-10-11] MEDS: Doxycycline 100 MG in Sodium Chloride 0.9% 100 ML IVPB SCH ×2 (06:14→17:46)
[2023-10-11 06:17] LABS: Delete Auto Diff?? YES; Hematocrit 25.9 % (42.0-52.0); Hemoglobin 8.1 g/dL (14.0-18.0); Manual Diff?? YES; Mean Corpuscular HGB CONC 31.3 g/dL (32.0-36.0); Mean Corpuscular Hemoglobin 31.8 pg (27.0-31.0); Mean Corpuscular Volume 101.6 fl (78.0-98.0); Mean Platelet Volume 10.5 fL (7.4-10.4); Platelet Count 185 10x3/uL (130-400); RBC Distribution Width 19.6 % (11.5-14.5); Red Blood Cell (RBC) Count 2.55 mill/uL (4.70-6.10); White Blood Cell (WBC) Count 16.2 10x3/uL (4.8-10.8)
[2023-10-11 06:35] LABS: ALT (SGPT) 11 U/L (8-55); AST (SGOT) 18 U/L (5-34); Albumin 2.7 g/dL (3.4-4.8); Alkaline Phosphatase 142 U/L (40-110); Anion Gap 10 mmol/L (10-20); BUN (Urea Nitrogen) 17 mg/dL (8.4-25.7); Bilirubin, Total 0.5 mg/dL (0.2-1.2); Calc. Creatinine Clearance 54 mL/min (70-130); Calcium 7.7 mg/dL (7.8-10.44); Carbon Dioxide 25 mmol/L (23-31); Chloride 108 mmol/L (98-107); Estimated GFR 58; Globulin 2.7 g/dL (2.4-3.5); Glucose 104 mg/dL (83-110); Potassium 2.9 mmol/L (3.5-5.1); Protein, Total 5.4 g/dL (5.8-8.1); Sodium 140 mmol/L (136-145)
[2023-10-11 06:37] LABS: Band 6 % (5-11); CellaVision Operator ID LAB.GE; Eosinophils 2 % (0-10); Lymphocytes 4 % (21-51); Monocytes 4 % (0-10); Neutrophil 84 % (42-75); Platelet Adequacy Comment Platelets Normal; Polychromasia SLIGHT = 2-3 cells HPF (0-2); Total Cell Count 101; Toxic Granulation SLIGHT; Troponin I 0.025 ng/mL (< 0.028)
[2023-10-11] MEDS: Pancrelipase DR 12,000 1 CAP PO SCH ×4 (08:44→18:36)
[2023-10-11] MEDS: Vit A,C & E/Lutein/Minerals Tablet PO SCH (08:44)
[2023-10-11] MEDS: Propranolol 10 MG TAB PO SCH ×2 (08:44→20:01)
[2023-10-11] MEDS: Losartan 25 MG TAB PO SCH (08:44)
[2023-10-11] MEDS: Ferrous Sulfate 325 MG TAB PO SCH (08:47)
[2023-10-11] MEDS ORDERED: Ferrous Sulfate 325 MG TAB PO SCH (09:00)
[2023-10-11] MEDS ORDERED: Aspirin 325 MG TAB PO SCH (09:00)
[2023-10-11] MEDS ORDERED: Atorvastatin Calcium 20 MG TAB PO SCH (09:00)
[2023-10-11] MEDS ORDERED: Tamsulosin HCl 0.4 MG CAP PO SCH (09:00)
[2023-10-11] MEDS ORDERED: Potassium Chloride 20 MEQ TAB PO SCH (15:00)
[2023-10-11] MEDS: Aspirin 325 MG TAB PO SCH (20:00)
[2023-10-11] MEDS: Tamsulosin HCl 0.4 MG CAP PO SCH (20:01)
[2023-10-11] MEDS: Atorvastatin Calcium 20 MG TAB PO SCH (20:01)
[2023-10-11] MEDS ORDERED: Famotidine/PF 20 mg/2ml Vial SLOW IVP SCH (21:00)
[2023-10-12] MEDS ORDERED: Lorazepam 2 MG/ML VIAL SLOW IVP SCH (01:15)
[2023-10-12] MEDS: Furosemide 20 MG (2 mL) VIAL SLOW IVP SCH ×2 (06:03→13:37)
[2023-10-12] MEDS: Doxycycline 100 MG in Sodium Chloride 0.9% 100 ML IVPB SCH ×2 (06:04→17:37)
[2023-10-12 06:30] LABS: Hematocrit 25.8 % (42.0-52.0); Manual Diff?? YES; Mean Corpuscular Hemoglobin 31.6 pg (27.0-31.0); Mean Platelet Volume 10.3 fL (7.4-10.4); Platelet Count 213 10x3/uL (130-400); RBC Distribution Width 19.9 % (11.5-14.5); Red Blood Cell (RBC) Count 2.53 mill/uL (4.70-6.10); White Blood Cell (WBC) Count 21.9 10x3/uL (4.8-10.8)
[2023-10-12 06:42] LABS: Delete Auto Diff?? YES
[2023-10-12 06:46] LABS: INR-International Normal Ratio 1.2; PTT 30.1 sec (22.9-36.1); Prothrombin Time 15.3 sec (12.0-14.7)
[2023-10-12 06:51] LABS: ALT (SGPT) 9 U/L (8-55); AST (SGOT) 21 U/L (5-34); Albumin 2.6 g/dL (3.4-4.8); Alkaline Phosphatase 144 U/L (40-110); Anion Gap 12 mmol/L (10-20); BUN (Urea Nitrogen) 17 mg/dL (8.4-25.7); Bilirubin, Total 0.5 mg/dL (0.2-1.2); Calc. Creatinine Clearance 62 mL/min (70-130); Calcium 7.7 mg/dL (7.8-10.44); Carbon Dioxide 23 mmol/L (23-31); Chloride 109 mmol/L (98-107); Estimated GFR 67; Globulin 2.6 g/dL (2.4-3.5); Glucose 99 mg/dL (83-110); Magnesium 1.6 mg/dL (1.6-2.6); Protein, Total 5.2 g/dL (5.8-8.1); Sodium 141 mmol/L (136-145)
[2023-10-12 07:46] LABS: Band 2 % (5-11); Monocytes 2 % (0-10); Neutrophil 96 % (42-75)
[2023-10-12 07:47] LABS: Small Platelets SLIGHT HPF (0-15)
[2023-10-12] MEDS ORDERED: Spironolactone 100 MG TAB PO SCH (09:15)
[2023-10-12] MEDS: Vit A,C & E/Lutein/Minerals Tablet PO SCH (09:34)
[2023-10-12] MEDS: Ferrous Sulfate 325 MG TAB PO SCH (09:34)
[2023-10-12] MEDS: Pancrelipase DR 12,000 1 CAP PO SCH ×3 (09:34→17:38)
[2023-10-12] MEDS: Potassium Chloride 20 MEQ TAB PO SCH (09:35)
[2023-10-12] MEDS: Propranolol 10 MG TAB PO SCH ×2 (09:35→20:10)
[2023-10-12] MEDS: Losartan 25 MG TAB PO SCH (09:35)
[2023-10-12] MEDS ORDERED: Potassium Chloride 20 MEQ TAB PO SCH (10:45)
[2023-10-12 16:45] LABS: Bacteria/HPF None Seen HPF (None Seen); Bilirubin Negative (Negative); Blood, Urine 1+ (Negative); CAUTI Indications for Culture Alt mental st,lethar; Clarity Clear (Clear); Glucose, Urine (Dipstick) Normal (Negative); Ketone, Urine Negative (Negative); Leukocyte Negative Leu/uL (Negative); Nitrite Negative (Negative); Protein, Urine (Dipstick) Negative (Neg-Trace); Specific Gravity, Urine 1.006 (1.002-1.036); Squamous Epithelial None Seen HPF (0-3); Urobilinogen Normal mg/dL (Less than 2); WBC/HPF 0-3 HPF (0-3)
[2023-10-12 16:46] LABS: Urine Culture Reflex No No
[2023-10-12] MEDS: Tamsulosin HCl 0.4 MG CAP PO SCH (20:09)
[2023-10-12] MEDS: Aspirin 325 MG TAB PO SCH (20:09)
[2023-10-12] MEDS: Atorvastatin Calcium 20 MG TAB PO SCH (20:09)
[2023-10-12] MEDS: Famotidine 20 MG TAB PO SCH (20:10)
[2023-10-13] MEDS: Furosemide 20 MG (2 mL) VIAL SLOW IVP SCH (05:48)
[2023-10-13] MEDS: Doxycycline 100 MG in Sodium Chloride 0.9% 100 ML IVPB SCH ×2 (05:48→17:27)
[2023-10-13 05:59] VITALS: BMI 26.5
[2023-10-13 06:03] LABS: #Basophils 0.1 thou/uL (0.0-0.2); #Eosinphils 0.2 thou/uL (0.0-0.7); #Neutrophils 16.4 thou/uL (1.40-6.50); %Basophils 0.3 % (0.0-1.0); %Eosinophils 0.8 % (0.0-10.0); %Lymphocytes 2.4 % (21.0-51.0); %Monocytes 5.3 % (0.0-10.0); %Neutrophils 89.7 % (42.0-75.0); Hematocrit 28.6 % (42.0-52.0); Hemoglobin 8.9 g/dL (14.0-18.0); Mean Corpuscular HGB CONC 31.1 g/dL (32.0-36.0); Mean Corpuscular Hemoglobin 31.6 pg (27.0-31.0); Mean Corpuscular Volume 101.4 fl (78.0-98.0); Platelet Count 251 10x3/uL (130-400); RBC Distribution Width 20.2 % (11.5-14.5); Red Blood Cell (RBC) Count 2.82 mill/uL (4.70-6.10); White Blood Cell (WBC) Count 18.3 10x3/uL (4.8-10.8)
[2023-10-13 06:27] LABS: Anion Gap 10 mmol/L (10-20); BUN (Urea Nitrogen) 18 mg/dL (8.4-25.7); Calc. Creatinine Clearance 72 mL/min (70-130); Calcium 7.8 mg/dL (7.8-10.44); Carbon Dioxide 27 mmol/L (23-31); Chloride 107 mmol/L (98-107); Estimated GFR 80; Glucose 115 mg/dL (83-110); Sodium 141 mmol/L (136-145)
[2023-10-13] MEDS ORDERED: Potassium Chloride 20 MEQ TAB PO SCH ×2 (08:00→16:00)
[2023-10-13] MEDS ORDERED: Lidocaine 1% PF 5 ML VIAL ONE (08:43)
[2023-10-13] MEDS ORDERED: Sodium Bicarbonate 2.5 MEQ/5 ML SDV ONE (08:43)
[2023-10-13] MEDS ORDERED: Furosemide 20 MG (2 mL) VIAL SLOW IVP SCH (10:45)
[2023-10-13] MEDS: Propranolol 10 MG TAB PO SCH ×2 (11:01→21:15)
[2023-10-13] MEDS: Losartan 25 MG TAB PO SCH (11:02)
[2023-10-13] MEDS: Ferrous Sulfate 325 MG TAB PO SCH (11:02)
[2023-10-13] MEDS: Spironolactone 100 MG TAB PO SCH (11:03)
[2023-10-13] MEDS: Potassium Chloride 20 MEQ TAB PO SCH (11:03)
[2023-10-13] MEDS: Pancrelipase DR 12,000 1 CAP PO SCH ×3 (11:04→17:27)
[2023-10-13] MEDS: Vit A,C & E/Lutein/Minerals Tablet PO SCH (11:04)
[2023-10-13] MEDS: Furosemide 40 MG (4 mL) VIAL SLOW IVP SCH (16:16)
[2023-10-13] MEDS: Atorvastatin Calcium 20 MG TAB PO SCH (21:14)
[2023-10-13] MEDS: Tamsulosin HCl 0.4 MG CAP PO SCH (21:14)
[2023-10-13] MEDS: Famotidine 20 MG TAB PO SCH (21:14)
[2023-10-13] MEDS: Aspirin 325 MG TAB PO SCH (21:15)
[2023-10-13] MEDS: HYDROcodone/Acetaminophen 5/325 mg Tablet PO PRN (21:22)
[2023-10-14 05:42] LABS: #Eosinphils 0.2 thou/uL (0.0-0.7); #Neutrophils 13.1 thou/uL (1.40-6.50); %Basophils 0.2 % (0.0-1.0); %Eosinophils 1.2 % (0.0-10.0); %Lymphocytes 4.7 % (21.0-51.0); %Monocytes 6.2 % (0.0-10.0); %Neutrophils 85.2 % (42.0-75.0); Hematocrit 26.2 % (42.0-52.0); Hemoglobin 8.3 g/dL (14.0-18.0); Mean Corpuscular HGB CONC 31.7 g/dL (32.0-36.0); Mean Corpuscular Hemoglobin 32.4 pg (27.0-31.0); Mean Corpuscular Volume 102.3 fl (78.0-98.0); Mean Platelet Volume 10.3 fL (7.4-10.4); Platelet Count 250 10x3/uL (130-400); RBC Distribution Width 20.3 % (11.5-14.5); Red Blood Cell (RBC) Count 2.56 mill/uL (4.70-6.10); White Blood Cell (WBC) Count 15.4 10x3/uL (4.8-10.8)
[2023-10-14 06:04] LABS: Anion Gap 9 mmol/L (10-20); BUN (Urea Nitrogen) 17 mg/dL (8.4-25.7); Calc. Creatinine Clearance 71 mL/min (70-130); Calcium 7.6 mg/dL (7.8-10.44); Carbon Dioxide 27 mmol/L (23-31); Chloride 110 mmol/L (98-107); Estimated GFR 78; Glucose 96 mg/dL (83-110); Potassium 3.6 mmol/L (3.5-5.1); Sodium 142 mmol/L (136-145)
[2023-10-14] MEDS: Furosemide 40 MG (4 mL) VIAL SLOW IVP SCH ×2 (06:24→12:52)
[2023-10-14] MEDS: Doxycycline 100 MG in Sodium Chloride 0.9% 100 ML IVPB SCH ×2 (06:25→17:20)
[2023-10-14] MEDS: Propranolol 10 MG TAB PO SCH ×2 (08:37→21:17)
[2023-10-14] MEDS: Spironolactone 100 MG TAB PO SCH (08:37)
[2023-10-14] MEDS: Potassium Chloride 20 MEQ TAB PO SCH (08:37)
[2023-10-14] MEDS: Pancrelipase DR 12,000 1 CAP PO SCH ×5 (08:37→19:15)
[2023-10-14] MEDS: Vit A,C & E/Lutein/Minerals Tablet PO SCH (08:37)
[2023-10-14] MEDS: Ferrous Sulfate 325 MG TAB PO SCH (08:37)
[2023-10-14] MEDS: Losartan 25 MG TAB PO SCH (08:38)
[2023-10-14] MEDS: HYDROcodone/Acetaminophen 5/325 mg Tablet PO PRN (12:52)
[2023-10-14] MEDS ORDERED: Metolazone 5 MG TAB PO SCH (14:30)
[2023-10-14] MEDS: Aspirin 325 MG TAB PO SCH (21:17)
[2023-10-14] MEDS: Famotidine 20 MG TAB PO SCH (21:17)
[2023-10-14] MEDS: Atorvastatin Calcium 20 MG TAB PO SCH (21:17)
[2023-10-14] MEDS: Tamsulosin HCl 0.4 MG CAP PO SCH (21:18)
[2023-10-15 05:05] LABS: Anion Gap 6 mmol/L (10-20); BUN (Urea Nitrogen) 18 mg/dL (8.4-25.7); Calc. Creatinine Clearance 69 mL/min (70-130); Calcium 7.9 mg/dL (7.8-10.44); Carbon Dioxide 34 mmol/L (23-31); Chloride 105 mmol/L (98-107); Estimated GFR 85; Glucose 98 mg/dL (83-110); Magnesium 1.4 mg/dL (1.6-2.6); Potassium 3.4 mmol/L (3.5-5.1); Sodium 142 mmol/L (136-145)
[2023-10-15] MEDS: Furosemide 40 MG (4 mL) VIAL SLOW IVP SCH ×2 (06:21→15:31)
[2023-10-15] MEDS: Doxycycline 100 MG in Sodium Chloride 0.9% 100 ML IVPB SCH (06:28)
[2023-10-15] MEDS: Pancrelipase DR 12,000 1 CAP PO SCH ×3 (08:25→17:39)
[2023-10-15] MEDS: Metolazone 5 MG TAB PO SCH (08:26)
[2023-10-15] MEDS: Losartan 25 MG TAB PO SCH (08:26)
[2023-10-15] MEDS: Potassium Chloride 20 MEQ TAB PO SCH ×2 (08:26→17:38)
[2023-10-15] MEDS: Vit A,C & E/Lutein/Minerals Tablet PO SCH (08:26)
[2023-10-15] MEDS: Ferrous Sulfate 325 MG TAB PO SCH (08:26)
[2023-10-15] MEDS: Propranolol 10 MG TAB PO SCH ×2 (08:26→21:47)
[2023-10-15] MEDS: Spironolactone 100 MG TAB PO SCH (08:26)
[2023-10-15] MEDS: Doxycycline 100 MG CAP PO SCH ×2 (10:54→21:46)
[2023-10-15] MEDS: Magnesium Oxide 400 MG TAB PO SCH ×2 (12:23→21:47)
[2023-10-15] MEDS: Atorvastatin Calcium 20 MG TAB PO SCH (21:46)
[2023-10-15] MEDS: Tamsulosin HCl 0.4 MG CAP PO SCH (21:46)
[2023-10-15] MEDS: Famotidine 20 MG TAB PO SCH (21:47)
[2023-10-15] MEDS: Aspirin 325 MG TAB PO SCH (21:47)
[2023-10-16 05:43] LABS: #Eosinphils 0.2 thou/uL (0.0-0.7); #Monocytes 1.1 thou/uL (0.11-0.59); #Neutrophils 13.8 thou/uL (1.40-6.50); %Basophils 0.2 % (0.0-1.0); %Eosinophils 1.2 % (0.0-10.0); %Lymphocytes 4.4 % (21.0-51.0); %Monocytes 6.7 % (0.0-10.0); %Neutrophils 85.9 % (42.0-75.0); Hematocrit 29.5 % (42.0-52.0); Hemoglobin 9.3 g/dL (14.0-18.0); Mean Corpuscular HGB CONC 31.5 g/dL (32.0-36.0); Mean Corpuscular Hemoglobin 31.6 pg (27.0-31.0); Mean Corpuscular Volume 100.3 fl (78.0-98.0); Mean Platelet Volume 10.1 fL (7.4-10.4); Platelet Count 313 10x3/uL (130-400); RBC Distribution Width 19.8 % (11.5-14.5); Red Blood Cell (RBC) Count 2.94 mill/uL (4.70-6.10)
[2023-10-16] MEDS: Furosemide 40 MG (4 mL) VIAL SLOW IVP SCH (06:04)
[2023-10-16 06:09] LABS: Anion Gap 9 mmol/L (10-20); BUN (Urea Nitrogen) 20 mg/dL (8.4-25.7); Calc. Creatinine Clearance 52 mL/min (70-130); Carbon Dioxide 35 mmol/L (23-31); Chloride 98 mmol/L (98-107); Potassium 3.4 mmol/L (3.5-5.1); Sodium 139 mmol/L (136-145)
[2023-10-16 06:10] LABS: ALT (SGPT) 11 U/L (8-55); AST (SGOT) 20 U/L (5-34); Albumin 2.5 g/dL (3.4-4.8); Alkaline Phosphatase 130 U/L (40-110); Bilirubin, Total 0.7 mg/dL (0.2-1.2); Calcium 8.1 mg/dL (7.8-10.44); Estimated GFR 69; Globulin 2.6 g/dL (2.4-3.5); Glucose 98 mg/dL (83-110); Protein, Total 5.1 g/dL (5.8-8.1)
[2023-10-16 07:54] VITALS: BP 126/68; TEMP 98.5
[2023-10-16] MEDS: Doxycycline 100 MG CAP PO SCH (09:26)
[2023-10-16] MEDS: Vit A,C & E/Lutein/Minerals Tablet PO SCH (09:26)
[2023-10-16] MEDS: Magnesium Oxide 400 MG TAB PO SCH (09:26)
[2023-10-16] MEDS: Ferrous Sulfate 325 MG TAB PO SCH (09:26)
[2023-10-16] MEDS: Metolazone 5 MG TAB PO SCH (09:26)
[2023-10-16] MEDS: Losartan 25 MG TAB PO SCH (09:26)
[2023-10-16] MEDS: Pancrelipase DR 12,000 1 CAP PO SCH (09:26)
[2023-10-16] MEDS: Propranolol 10 MG TAB PO SCH (09:26)
[2023-10-16] MEDS: Potassium Chloride 20 MEQ TAB PO SCH (09:26)
[2023-10-16] MEDS: Spironolactone 100 MG TAB PO SCH (09:27)
== END 2023-10-16 12:25 | disposition home health service (06) | DRG 291 ==
LOC: MSONC 14:30
PROVIDERS: ADMIT Internal Medicine; ATTEND Internal Medicine
PROC: 0W9G3ZZ Drainage of Peritoneal Cavity, Percutaneous Approach (ICD-10-PCS; principal; 2023-10-13)
DX: I11.0 Hypertensive heart disease with heart failure (principal); G93.41 Metabolic encephalopathy; I50.33 Acute on chronic diastolic (congestive) heart failure; J18.9 Pneumonia, unspecified organism; C25.9 Malignant neoplasm of pancreas, unspecified; R18.0 Malignant ascites; Z66 Do not resuscitate; I25.10 Atherosclerotic heart disease of native coronary artery without angina pectoris; E78.5 Hyperlipidemia, unspecified; I34.0 Nonrheumatic mitral (valve) insufficiency; I48.91 Unspecified atrial fibrillation; E87.6 Hypokalemia; N40.0 Benign prostatic hyperplasia without lower urinary tract symptoms; Z79.899 Other long term (current) drug therapy; Z79.82 Long term (current) use of aspirin; Z98.890 Other specified postprocedural states; Z95.2 Presence of prosthetic heart valve; Z90.49 Acquired absence of other specified parts of digestive tract; Z90.89 Acquired absence of other organs; E61.1 Iron deficiency
CPT/HCPCS: 36415; 49083; 71045; 71260; 74177; 80048; 80053; 81001; 82140; 83605; 83735; 83880; 84443; 84484; 85025; 85610; 85730; 86301; 93005; 93010; 93306; J1642; J1940; J2060; J3490; Q9967; S0028

== ENCOUNTER → 2023-11-02 | Day surgery (SDC) | payer MEDICARE, OTHER ==
[~2023-11-02] MED LIST changes: -Iopamidol-370 76% 500 ML MDV (1 ML CHARGE) ONE; +Lidocaine 1% PF 5 ML VIAL ONE; +Sodium Bicarbonate 2.5 MEQ/5 ML SDV ONE
[2023-11-02 08:20] LABS: #Eosinphils 0.1 thou/uL (0.0-0.7); #Monocytes 0.9 thou/uL (0.11-0.59); #Neutrophils 10.4 thou/uL (1.40-6.50); %Basophils 0.2 % (0.0-1.0); %Eosinophils 0.7 % (0.0-10.0); %Lymphocytes 5.3 % (21.0-51.0); %Monocytes 7.1 % (0.0-10.0); %Neutrophils 86.1 % (42.0-75.0); Hematocrit 28.7 % (42.0-52.0); Hemoglobin 8.9 g/dL (14.0-18.0); Mean Corpuscular Hemoglobin 33.1 pg (27.0-31.0); Mean Corpuscular Volume 106.7 fl (78.0-98.0); Mean Platelet Volume 9.7 fL (7.4-10.4); Platelet Count 342 10x3/uL (130-400); RBC Distribution Width 18.2 % (11.5-14.5); Red Blood Cell (RBC) Count 2.69 mill/uL (4.70-6.10); White Blood Cell (WBC) Count 12.1 10x3/uL (4.8-10.8)
[2023-11-02 08:48] LABS: INR-International Normal Ratio 1.1; PTT 37.7 sec (22.9-36.1); Prothrombin Time 14.2 sec (12.0-14.7)
[2023-11-02 09:10] VITALS: BP 111/71; TEMP 99.4
[2023-11-02 14:20] LABS: RBC Count-Automated (BF) 4283 /cu.mm; WBC/Nucleated-Auto (BF) 234 /cu.mm
[2023-11-02 14:39] LABS: BF Color Red; Body Fluid Source Ascites Body Fluid; Clarity Hazy (Clear); Tube # EDTA
[2023-11-02 14:58] LABS: BF Segmented Neutrophils 20 %; Cell Count Non Hematic 67 %; Lymphocytes 13 %
[2023-11-04 03:26] LABS: Fluid, Glucose 67 mg/dL (Not Available); Fluid, LDH 401 U/L (Not Available)
== END ==
LOC: ULT 07:59
PROVIDERS: ATTEND Internal Medicine
PROC: 0W9G3ZZ Drainage of Peritoneal Cavity, Percutaneous Approach (ICD-10-PCS; principal; 2023-11-02)
DX: R18.8 Other ascites (principal); C24.1 Malignant neoplasm of ampulla of Vater; Z90.49 Acquired absence of other specified parts of digestive tract; Z90.89 Acquired absence of other organs; Z95.4 Presence of other heart-valve replacement; I11.0 Hypertensive heart disease with heart failure; I50.9 Heart failure, unspecified
CPT/HCPCS: 49083; 82945; 83615; 84155; 85025; 85060; 85610; 85730; 87070; 87205; 89051